=== PATIENT | male | born 1950 | race Caucasian/White ===

== ENCOUNTER → 2019-04-21 10:57 | Outpatient (BNVA) | payer MEDICARE, SELFPAY | PROVIDERS: Family Provider Family Medicine; PCP Family Medicine; Visit Provider Family Medicine | DX: E11.9 Type 2 diabetes mellitus without complications (principal); E03.9 Hypothyroidism, unspecified; I61.2 Nontraumatic intracerebral hemorrhage in hemisphere, unspecified | CPT/HCPCS: 36416; 83036; 84439; 84443 ==

== ENCOUNTER → 2019-06-16 14:35 | Outpatient (BNVA) | payer MEDICARE, SELFPAY | PROVIDERS: Family Provider Family Medicine; PCP Family Medicine; Visit Provider Specialist | DX: G81.11 Spastic hemiplegia affecting right dominant side (principal); R29.90 Unspecified symptoms and signs involving the nervous system | CPT/HCPCS: 99214 ==

== ENCOUNTER → 2019-08-21 13:11 | Outpatient (BNVA) | payer MEDICARE, SELFPAY | PROVIDERS: Family Provider Family Medicine; PCP Family Medicine; Visit Provider Specialist | DX: G81.11 Spastic hemiplegia affecting right dominant side (principal) | CPT/HCPCS: 64642; J0585 ==

== ENCOUNTER → 2019-10-15 11:43 | Outpatient (BNVA) | payer MEDICARE, SELFPAY | PROVIDERS: Family Provider Family Medicine; PCP Family Medicine; Visit Provider Family Medicine | DX: E11.9 Type 2 diabetes mellitus without complications (principal) | CPT/HCPCS: 83036 ==

== ENCOUNTER → 2019-11-13 12:55 | Outpatient (BNVA) | payer MEDICARE, SELFPAY | PROVIDERS: Family Provider Family Medicine; PCP Family Medicine; Visit Provider Specialist | DX: G81.11 Spastic hemiplegia affecting right dominant side (principal) | CPT/HCPCS: 64642; 99212 ==

== ENCOUNTER → 2020-04-14 09:53 | Outpatient (BNVA) | payer MEDICARE, SELFPAY | PROVIDERS: Family Provider Family Medicine; PCP Family Medicine; Visit Provider Family Medicine | DX: E11.9 Type 2 diabetes mellitus without complications (principal); E03.9 Hypothyroidism, unspecified | CPT/HCPCS: 36415; 83036; 84439; 84443 ==

== ENCOUNTER → 2020-05-12 14:11 | Outpatient (BNVA) | payer MEDICARE, SELFPAY | PROVIDERS: Family Provider Family Medicine; PCP Family Medicine; Visit Provider Specialist | DX: I69.151 Hemiplegia and hemiparesis following nontraumatic intracerebral hemorrhage affecting right dominant side (principal); I69.120 Aphasia following nontraumatic intracerebral hemorrhage; I10 Essential (primary) hypertension; M79.89 Other specified soft tissue disorders | CPT/HCPCS: 99213 ==

== ENCOUNTER 2020-05-13 14:38 | Outpatient (CLI) | payer MEDICARE, SELFPAY ==
--- NOTE | 2020-05-13 15:00 | USCV_ITS ---
BarneyShawn Age: 70 Gender: M : 1950 Exam Date: 05/13/2020 13:51 Ordering Phys: Taylor Hameed MD Technologist: Marcus Ryder Exam Location: [facility] [place] Indication: SOFT TISSUE DISORDER HISTORY: Other soft tissue disorder PROCEDURES: Venous duplex imaging was performed in only the right lower extremity. The following venous structures were evaluated: common femoral vein, profunda vein, proximal portion of the greater saphenous vein, superficial femoral vein, and the popliteal vein. In addition, the posterior tibial and peroneal trunk were evaluated. Serial compression, augmentation maneuvers, and spectral Doppler flow evaluation were performed. FINDINGS: Normal 2-D Doppler and augmentation and compressibility throughout the lower extremity venous structures. Additional imaging through the proximal calf veins also reveals no thrombus. Limited evaluation of the greater saphenous vein is patent with no thrombus. There is subcutaneous right lower extremity edema noted. CONCLUSIONS No DVT right lower extremity. There is subcutaneous right lower extremity edema noted. Dr. Yolande Paz DO (Electronically Signed) Final Date: 13 May 2020 16:13 S
== END 2020-05-13 14:39 | disposition home or self-care (01) ==
LOC: RAD 14:42
PROVIDERS: PCP Family Medicine; Visit Provider Specialist
DX: M79.89 Other specified soft tissue disorders (principal)
CPT/HCPCS: 93971

== ENCOUNTER 2020-07-09 18:51 | Inpatient (IN) | payer MEDICARE, SELFPAY ==
[2020-07-09] VITALS (11 sets, daily range): BP systolic 82–129; BP diastolic 48–90; PULSE 106–163; RESP 18–33; TEMP 36.9–37.5; O2SAT 78–97; BMI 21.2
--- NOTE | 2020-07-09 19:10 | ECG_ITS ---
[facility] Test Date: 2020-07-09 Pat Name: Shawn Corley Department: Room: [facility]04 Gender: Male [employer]: : 1950 Requested By: Ramon Pike Order Number: [id number] Boaz MD: Ml Lyman M.D. Measurements Intervals [place] Rate: 100 P: 38 CO: 181 QRS: 56 QRSD: 90 T: -14 QT: 321 QTc: 415 Interpretive Statements SINUS TACHYCARDIA LOW QRS VOLTAGE IN PRECORDIAL LEADS [QRS DEFLECTION < 1.0 mV IN CHEST LEADS] NONSPECIFIC T-WAVE ABNORMALITY Compared to ECG 09/17/2017 14:43:23 Low QRS voltage now present Sinus rhythm no longer present T-wave abnormality still present Electronically Signed On 07-10-2020 20:22:39 CDT by Ml Lyman M.D. [id number]
--- NOTE | 2020-07-09 19:48 | XRR_ITS ---
PROCEDURE INFORMATION: Exam: XR Chest Exam date and time: 07/09/2020 7:51 PM Age: 70 years old Clinical indication: Other: Weakness; Additional info: Weak TECHNIQUE: Imaging protocol: XR of the chest Views: 1 view. Total images: 1 COMPARISON: CR Chest 1 [place] [id number] 09/17/2017 2:45 PM FINDINGS: Lungs: No visible active interstitial or alveolar airspace disease. Pleural spaces: Unremarkable. No pleural effusion. No pneumothorax. Heart/Mediastinum: Cardiac structures and configuration with arteriosclerosis. Bones/joints: Unremarkable for age. XR/XR chest 1V portable [id number] IMPRESSION: Nonacute.
--- NOTE | 2020-07-09 19:54 | ED_ITS ---
HPI - Weakness General: Chief complaint: Weakness Stated complaint: weakness Time Seen by Provider: 07/09/20 19:40 Source: patient Mode of arrival: ambulatory Limitations: no limitations History of Present Illness: HPI Narrative: 70-year-old male has had a history of hemorrhagic stroke and subdural hemorrhage in the past. Patient has chronic right-sided weakness from that. states that over the last week though he has been having increased weakness. She states that he has not done much during his physical therapy visits and that over the last 2 days that she has not even been able to transferring from chair to bed. She states he has had vomiting and diarrhea over the last 2 days. He does appear ill here and appears severely dehydrated. His blood pressures are in the 70s. He has had no known fevers. Denies any cough. Denies any headache. Associated symptoms: Reports nausea and vomiting; Denies chest pain, dysuria or easy bruising Review of Systems Const: Reports: fatigue Eyes: Denies: blurry vision or eye discomfort ENMT: Denies: throat pain or dental pain Card: Denies: chest pain Resp: Denies: dyspnea GI: Reports: nausea, vomiting and diarrhea : Denies: dysuria Musc: Denies: neck pain or back pain Skin/Breast: Denies: rash Neuro: Reports: weakness in extremities Psych: Denies: depression Mina/Lymph: Denies: easy bruising All/Imm: Denies: urticaria PFSH ED PFSH: Medical History CVA (cerebrovascular accident due to intracerebral hemorrhage) Enrolled in chronic care management Hypertensive intracerebral hemorrhage Hypothyroid Nocturnal enuresis Nontraumatic thalamic hemorrhage Spastic hemiparesis of right dominant side Type 2 diabetes mellitus Surgical History H/O craniotomy Family History Other Diabetes Hypertension Stroke Denies family history of CAD (coronary artery disease) Cancer Social History Smoking and tobacco status: never smoked Alcohol intake: never History of recent travel: No Physical Exam Const: COMMON NORMALS: patient oriented x3 GENERAL APPEARANCE: lethargic and ill appearing ORIENTATION/CONSCIOUSNESS: Yes lethargic HENMT: COMMON NORMALS: normocephalic and atraumatic HEAD & SCALP: normocephalic and atraumatic Eye: COMMON NORMALS: Equal, round and reactive pupils present and EOMs intact bilaterally PUPIL: Yes Equal, round and reactive pupils present Neck/C-Spine: COMMON NORMALS: full ROM and supple Chest: COMMONS NORMALS: normal inspection of the chest and normal palpation of entire chest wall Resp: COMMON NORMALS: normal respiratory effort, No retractions, No use of accessory muscles and clear to auscultation bilaterally AUSCULTATION: clear to auscultation bilaterally Cardio: COMMON NORMALS: regular rate, regular rhythm and No murmurs present (Cardio) RATE: regular rate RHYTHM: regular rhythm GI: COMMON NORMALS: Normal to inspection, nondistended, normoactive bowel sounds present, Soft to palpation, non-tender and no masses PALPATION: Yes Soft to palpation Extremity: COMMON NORMALS: normal to inspection and full ROM Neuro: COMMON NORMALS: patient oriented x3 and no focal motor deficits SENSORIUM/ORIENTATION: Yes lethargic Psych: COMMON NORMALS: mental status grossly normal, Normal thought process present and cooperative THOUGHT PROCESS: Normal thought process present Skin: COMMON NORMALS: no rashes or lesions noted and no wounds GENERAL SKIN EXAM: no rashes or lesions noted Procedures Central Line Placement Right IJ: Time Out Performed: Yes Patient Placed on Monitor/Pulse Ox: Yes MD Prep: mask, gown and gloves Central Line Prep: Chlorhexidine scrub Local Anesthetic: lidocaine 1% Amount of anesthesia used (mL): 5 Ultrasound Used for Placement: Yes Central Line Lumen Inserted: triple Post Procedure: sutured in place, good blood return, all ports aspirated, flushed, capped and sterile dressing applied Post Procedure X-Ray: tip of catheter in good position and no pneumothorax seen Patient Tolerated Procedure: well Complications: none Course Vital Signs: Vital signs: Vital Signs Temperature 98.5 F 07/09/20 19:14 Pulse Rate 114 H 07/09/20 22:25 Respiratory Rate 23 H 07/09/20 22:25 Blood Pressure 87/48 07/09/20 22:25 Pulse Oximetry 90 07/09/20 22:25 MDM - Weakness MDM Narrative: Medical decision making narrative: Shawn presents with dehydrat ion along with septic shock. Patient started on antibiotics here. After fluids patient still hypotensive and had a central line placed and started on pressors. Spoke to hospitalist will admit to the ICU. Lab Data: Labs: Lab Results 07/09/20 07/09/20 07/09/20 Range/Units 20:16 20:16 20:16 WBC Cancelled Corrected WBC Cancelled RBC Cancelled Hgb Cancelled Hct Cancelled MCV Cancelled MCH Cancelled MCHC Cancelled RDW Cancelled Plt Count Cancelled MPV Cancelled Gran % Cancelled Neut % (Auto) Cancelled Lymph % (Auto) Cancelled Alpine % (Auto) Cancelled Eos % (Auto) Cancelled Baso % (Auto) Cancelled Neut # (Auto) Cancelled Lymph # (Auto) Cancelled Alpine # (Auto) Cancelled Eos # (Auto) Cancelled Baso # (Auto) Cancelled Absolute Gran (aut o) Cancelled Nucleated RBC % (a uto) Cancelled Total Counted (0-100) Atypical Lymphs % (0-5) % Absolute Neutrophi ls (1.4-6.5) 10^3/c mm Segmented Neutroph ils % Abs Segm Neuts (Ma n) (1.6-7.1) 10/cmm Band Neutrophils % Abs Band Neuts (Ma n) (0.0-1.2) 10^3/c mm Absolute Lymphocyt es (1.2-3.4) 10^3/c mm Lymphocytes (Manua l) % Monocytes (Manual) % Absolute Monocytes (0.1-0.6) 10^3/c mm Eosinophils (Manua l) % Absolute Eosinophi ls (0.0-0.7) 10^3/c mm Basophils (Manual) % Absolute Basophils (0.0-0.2) 10^3/c mm Metamyelocytes % Nucleated RBCs # Cancelled Toxic Granulation Toxic Vacuolation Dohle Bodies Platelet Estimate (Normal) Sodium Cancelled Potassium Cancelled Chloride Cancelled Carbon Dioxide Cancelled Anion Gap Cancelled BUN Cancelled Creatinine Cancelled GFR Calculation Cancelled Glucose Cancelled Calculated Osmolal ity Cancelled Lactic Acid Lactic Acid (Sepsi s) (0.5-2.2) mmol/L Calcium Cancelled Magnesium Cancelled Total Bilirubin Cancelled AST Cancelled ALT Cancelled Alkaline Phosphata se Cancelled Troponin T Baselin e Cancelled Total Protein Cancelled Albumin Cancelled Globulin Cancelled TSH Cancelled Urine Color (Yellow) Urine Appearance (CLEAR) Urine pH (5-7) Ur Specific Gravit y (1.005-1.030) Urine Protein (Negative) Urine Glucose (UA) (Normal) Urine Ketones (Negative) Urine Blood (Negative) Urine Nitrate (Negative) Urine Bilirubin (Negative) Urine Urobilinogen (Negative) mg/dL Ur Leukocyte Cassie ase (Negative) Urine RBC (0-2) /hpf Urine WBC (0-5) /hpf Ur Squamous Epith Cells (0-5) /hpf Ur Renal Epithelia l Cell /hpf Amorphous Sediment Urine Bacteria (NONE) /hpf 07/09/20 07/09/20 07/09/20 Range/Units 20:16 21:21 21:21 WBC 16.7 H Corrected WBC RBC 3.82 L Hgb 11.8 Hct 37.8 L MCV 99.0 H MCH 30.9 MCHC 31.2 RDW 14.4 Plt Count 110 L MPV 11.1 H Gran % Neut % (Auto) Lymph % (Auto) Not Reportable Alpine % (Auto) Not Reportable Eos % (Auto) Baso % (Auto) Neut # (Auto) Lymph # (Auto) Not Reportable Alpine # (Auto) Not Reportable Eos # (Auto) Baso # (Auto) Absolute Gran (aut o) Nucleated RBC % (a uto) Total Counted 100 (0-100) Atypical Lymphs % 1.0 (0-5) % Absolute Neutrophi ls 13.5 H (1.4-6.5) 10^3/c mm Segmented Neutroph ils 50 % Abs Segm Neuts (Ma n) 8.4 H (1.6-7.1) 10/cmm Band Neutrophils 31.0 % Abs Band Neuts (Ma n) 5.2 H (0.0-1.2) 10^3/c mm Absolute Lymphocyt es 0.5 L (1.2-3.4) 10^3/c mm Lymphocytes (Manua l) 2 % Monocytes (Manual) 3.0 % Absolute Monocytes 0.5 (0.1-0.6) 10^3/c mm Eosinophils (Manua l) 0 % Absolute Eosinophi ls 0.0 (0.0-0.7) 10^3/c mm Basophils (Manual) 0.0 % Absolute Basophils 0.0 (0.0-0.2) 10^3/c mm Metamyelocytes 13.0 % Nucleated RBCs # Toxic Granulation 2+ H Toxic Vacuolation 2+ H Dohle Bodies 1+ H Platelet Estimate Decreased (Normal) Sodium Potassium Chloride Carbon Dioxide Anion Gap BUN Creatinine GFR Calculation Glucose Calculated Osmolal ity Lactic Acid Cancelled Lactic Acid (Sepsi s) 4.8 H* (0.5-2.2) mmol/L Calcium Magnesium Total Bilirubin AST ALT Alkaline Phosphata se Troponin T Baselin e Total Protein Albumin Globulin TSH Urine Color (Yellow) Urine Appearance (CLEAR) Urine pH (5-7) Ur Specific Gravit y (1.005-1.030) Urine Protein (Negative) Urine Glucose (UA) (Normal) Urine Ketones (Negative) Urine Blood (Negative) Urine Nitrate (Negative) Urine Bilirubin (Negative) Urine Urobilinogen (Negative) mg/dL Ur Leukocyte Cassie ase (Negative) Urine RBC (0-2) /hpf Urine WBC (0-5) /hpf Ur Squamous Epith Cells (0-5) /hpf Ur Renal Epithelia l Cell /hpf Amorphous Sediment Urine Bacteria (NONE) /hpf 07/09/20 07/09/20 07/09/20 Range/Units 21:21 21:21 22:07 WBC Corrected WBC RBC Hgb Hct MCV MCH MCHC RDW Plt Count MPV Gran % Neut % (Auto) Lymph % (Auto) Alpine % (Auto) Eos % (Auto) Baso % (Auto) Neut # (Auto) Lymph # (Auto) Alpine # (Auto) Eos # (Auto) Baso # (Auto) Absolute Gran (aut o) Nucleated RBC % (a uto) Total Counted (0-100) Atypical Lymphs % (0-5) % Absolute Neutrophi ls (1.4-6.5) 10^3/c mm Segmented Neutroph ils % Abs Segm Neuts (Ma n) (1.6-7.1) 10/cmm Band Neutrophils % Abs Band Neuts (Ma n) (0.0-1.2) 10^3/c mm Absolute Lymphocyt es (1.2-3.4) 10^3/c mm Lymphocytes (Manua l) % Monocytes (Manual) % Absolute Monocytes (0.1-0.6) 10^3/c mm Eosinophils (Manua l) % Absolute Eosinophi ls (0.0-0.7) 10^3/c mm Basophils (Manual) % Absolute Basophils (0.0-0.2) 10^3/c mm Metamyelocytes % Nucleated RBCs # Toxic Granulation Toxic Vacuolation Dohle Bodies Platelet Estimate (Normal) Sodium 136 Potassium 4.1 Chloride 100 Carbon Dioxide 18 L Anion Gap 22.1 H BUN 57 H Creatinine 2.6 H GFR Calculation 24.6 L Glucose 150 H Calculated Osmolal ity 301 H Lactic Acid Lactic Acid (Sepsi s) (0.5-2.2) mmol/L Calcium 8.3 L Magnesium 1.6 L Total Bilirubin 0.4 AST 43 H ALT 22 Alkaline Phosphata se 42 Troponin T Baselin e 191 H* Total Protein 5.4 L Albumin 3.4 L Globulin 2.0 TSH 1.52 Urine Color Yellow (Yellow) Urine Appearance Turbid (CLEAR) Urine pH 5 (5-7) Ur Specific Gravit y 1.015 (1.005-1.030) Urine Protein Neg (Negative) Urine Glucose (UA) Norm (Normal) Urine Ketones Negative (Negative) Urine Blood 3+ H (Negative) Urine Nitrate Negative (Negative) Urine Bilirubin Neg (Negative) Urine Urobilinogen Norm (Negative) mg/dL Ur Leukocyte Cassie ase 1+ H (Negative) Urine RBC 0-4 H (0-2) /hpf Urine WBC 55-80 H (0-5) /hpf Ur Squamous Epith Cells 10-15 H (0-5) /hpf Ur Renal Epithelia l Cell 5-10 /hpf Amorphous Sediment Not Reportable Urine Bacteria 4+ H (NONE) /hpf Imaging Data^: CXR: Attestation: I personally reviewed and interpreted this imaging study as follows: My impression: no acute abnormality EKG Data^: EKG 1: Attestation: I personally reviewed and interpreted this EKG as follows: EKG interpretation date: 07/09/20 EKG interpretation time: 20:28 Interpretation: sinus tach hr [address] or t wave abnormalities qrs 90 qtc 378 Critical Care Time Critical Care Time: Critical Care Time: Yes Total Critical Care Time: 35 Attestation: This case had a high probability of a clinically significant, sudden, or life threatening deterioration of this patient's condition which required my full and direct attention, intervention and personal management. Discharge Plan Discharge Patient Disposition: Admitted As Inpatient Admit Provider: Joshua Villafana Clinical Impression: Septic shock, Dehydration, Vomiting Condition: Stable Coding Level of Care Code ED [employer] Professional for Chg Fwd Exam Comprehensive
--- NOTE | 2020-07-09 19:59 | CTR_ITS ---
PROCEDURE INFORMATION: Exam: CT Head Without Contrast Exam date and time: 07/09/2020 8:02 PM Age: 70 years old Clinical indication: Prior surgery; Patient HX: Generalized weakness, hypotensive TECHNIQUE: Imaging protocol: Computed tomography of the head without contrast. Total images: 199 Radiation optimization: All CT scans at this facility use at least one of these dose optimization techniques: automated exposure control; mA and/or kV adjustment per patient size (includes targeted exams where dose is matched to clinical indication); or iterative reconstruction. COMPARISON: CT head wo con* [id number] 09/17/2017 1:56 PM RADIATION DOSE METRICS: Total DLP (mGy-cm): 1904.33 FINDINGS: Brain: No evidence of active or acute intracranial pathologic process, hemorrhage, or trauma. Advanced small vessel ischemic disease with senile periventricular leukomalacia. Extensive white matter demyelination, left cerebral hemisphere more advanced than right. Old lacunar infarctions left basal ganglia. Tiny lacunar infarctions right thalamus and lentiform nucleus. No mass effect. No midline shift. Advanced cerebral and cerebellar atrophy with ventricular dilatation greater than that anticipated for patient's chronological age. Gliosis and encephalomalacia at sites of previous intracranial hemorrhages. Cerebral ventricles: Ventriculomegaly greater than that anticipated for the degree of cerebral and cerebral atrophy. Thinning of the corpus callosum. Consideration might be given to normal pressure hydrocephalus. Bones/joints: Right frontal parietal craniotomy defect. Left posterior parietal trephination craniotomy defects. Paranasal sinuses: Visualized sinuses are unremarkable. No fluid levels. Mastoid air cells: Visualized mastoid air cells are well aerated. Soft tissues: Unremarkable. Other findings: Motion artifact. CT/CT head wo con* [id number] IMPRESSION: 1. No evidence of active or acute intracranial pathologic process, hemorrhage, or trauma. 2. Findings raising suspicion for normal pressure hydrocephalus. 3. Numerous chronic findings as detailed in text above. Radiation Dose CTDIVOL = (mGy): DLP = 1904.33 (mGy-cm)
[2020-07-09] MEDS: sodium chloride 0.9% 1,000 ML 999 ML IV ×3 (20:27→23:14)
[2020-07-09] MEDS: ondansetron 2 mg/ML SDV 2 mL 4 MG IVP (20:27)
--- NOTE | 2020-07-09 20:31 | PC.NURSE ---
EKG taken and given to provider
--- NOTE | 2020-07-09 21:10 | ECG_ITS ---
[facility] Test Date: 2020-07-09 Pat Name: Shawn Corley Department: Room: [facility]04 Gender: Male [employer]: : 1950 Requested By: Ramon Pike Order Number: [id number] Boaz MD: Ml Lyman M.D. Measurements Intervals [place] Rate: 103 P: 23 MI: 186 QRS: 43 QRSD: 78 T: 60 QT: 297 QTc: 389 Interpretive Statements SINUS TACHYCARDIA NONSPECIFIC T-WAVE ABNORMALITY ABNORMAL RHYTHM ECG Compared to ECG 09/17/2017 14:43:23 Sinus rhythm no longer present T-wave abnormality still present Electronically Signed On 07-10-2020 20:28:17 CDT by Ml Lyman M.D. [id number]
[2020-07-09 21:25] LABS: Hematocrit 37.8 % (42.0-52.0); Hemoglobin 11.8 g/dL (11.7-16.6); Mean Corpuscular HGB Conc 31.2 g/dL (30.0-36.0); Mean Corpuscular Hemoglobin 30.9 pg (28.0-34.0); Mean Platelet Volume 11.1 fL (7.4-10.4); Platelet Count 110 10^3/cmm (130-400); Red Blood Count 3.82 10^6/uL (4.1-5.3); Red Cell Distribution Width 14.4 % (12.1-15.1); White Blood Count 16.7 10^3/uL (4.0-10.0)
[2020-07-09 21:47] LABS: Slide Review Slide Review Perform
[2020-07-09 21:48] LABS: Absolute Neutrophil 13.5 10^3/cmm (1.4-6.5); Absolute Segmented Neutrophil 8.4 10/cmm (1.6-7.1); Band Neutrophils Absolute 5.2 10^3/cmm (0.0-1.2); Dohle Bodies 1+; Eosinophils 0 %; Lymphocytes 2 %; Lymphocytes Absolute 0.5 10^3/cmm (1.2-3.4); Monocytes Absolute 0.5 10^3/cmm (0.1-0.6); Platelet Estimate Decreased (Normal); Segmented Neutrophils 50 %; Total Cells Counted 100 (0-100); Toxic Granulation 2+; Toxic Vacuolation 2+
[2020-07-09] MEDS: piperacillin-tazobactam 3.375 GM in sodium chloride 0.9% (plus) 50 ML IV (21:56)
[2020-07-09 21:57] LABS: Alanine Aminotransferase 22 U/L (0-41); Albumin Level 3.4 g/dL (3.5-5.2); Alkaline Phosphatase 42 IU/L (40-130); Anion Gap 22.1 (5-19); Aspartate Amino Transferase 43 U/L (0-40); Blood Urea Nitrogen 57 mg/dL (8-23); Calcium 8.3 mg/dL (8.5-10.5); Carbon Dioxide 18 mmol/L (22-29); Chloride 100 mmol/L (98-107); Glomerular Filtration Rate 24.6 mL/min (90-130); Glucose 150 mg/dL (65-115); Magnesium 1.6 mg/dL (1.7-2.3); Osmolality Calculated 301 mOsm/kg (285-295); Potassium 4.1 mmol/L (3.5-5.1); Sodium 136 mmol/L (136-145); Thyroid Stimulating Hormone 1.52 uIU/mL (0.27-4.20); Total Bilirubin 0.4 mg/dL (0.15-1.2); Total Protein 5.4 g/dL (6.6-8.7)
[2020-07-09 21:58] LABS: Lactic Acid level (Lactate) 4.8 mmol/L (0.5-2.2); Troponin(5th) Baseline 191 ng/L (0-15)
[2020-07-09] MEDS: vancomycin 1,000 MG in sodium chloride 0.9% 250 ML 250 MG IV (22:21)
[2020-07-09 22:26] LABS: Bilirubin Urine Neg (Negative); Blood Urine 3+ (Negative); Glucose Urine UA Norm (Normal); Ketones Urine Negative (Negative); Nitrate Urine Negative (Negative); Protein Urine Neg (Negative); Specific Gravity, Urine 1.015 (1.005-1.030); Urine Appearance Turbid (CLEAR); Urine Color Yellow (Yellow); Urobilinogen Urine Norm (Negative); pH Urine 5 (5-7)
[2020-07-09 22:27] LABS: Add Urine Microscopic? YES; Bacteria Urine 4+ /hpf; Leukocyte Esterase Urine 1+ (Negative); RBC Urine 0-4 /hpf (0-2); WBC Urine 55-80 /hpf (0-5)
[2020-07-09] MEDS: sodium chloride 0.9% 1,000 ML 150 ML IV (22:34)
--- NOTE | 2020-07-09 22:51 | P.HP_ITS ---
Providers/Chief Complaint Admitting Physician: Joshua Villafana MD Primary Care Provider: Oscar Farah DO Chief Complaint: weakness History of Present Illness Shawn Corley is a 70 year old male who carries history of hemorrhagic stroke, subdural hematoma September 2017, spastic right hemiparesis, history of hypertensive thalamic hemorrhage 2015, residual aphasia, does get Botox injection for spastic hemiparesis by Dr. Hameed presented today with chief complaint of nausea vomiting generalized weakness and dehydration. Patient cannot provide any history, I called his , is stating that yesterday he had 1 episode of emesis and then had a large bowel movement which was loose, no recent antibiotic usage, she did not notice any fever, she is denying previous history of seizures, since yesterday Mr. Castrejon has not been able to eat or drink much, he only had one episode of diarrhea and emesis. He did not complain of abdominal pain chest pain or shortness of breath. stated that he uses quad cane to go to the bathroom and does have home health services/PT. Because of these changes she decided to bring him to the hospital Diagnosis in the ER revealed septic shock he was given 3 L of fluid without improvement in blood pressure, central line was placed by Dr. Andrews, initial x- ray did not show pulmonary edema however after 3 L it is showing pulmonary edema with right lower lobe consolidation he has been given vancomycin and Zosyn in the ER, CBC shows leukocytosis, low-grade temperature 99.9, hemoglobin stable, mild thrombocytopenia, blast cell noted on CBC, PHIL, normal potassium lactic acid 4.8, hypomagnesemia, negative delta troponin EKG showing sinus tachycardia without ischemic or ST elevation Normal TSH Abnormal UA with significant pyuria without hematuria CT abdomen pelvis is pending Head CT shows chronic changes, findings consistent with NPH When I evaluated the patient in ICU he was showing signs of hypoperfusion with skin mottling, he was able to follow commands, short attention span, mottled appearance of lower extremities however dorsalis pedis posterior tibial Doppler findings 2+ bilaterally, temperature 99.9, blood glucose 167 mg/dL, He was started on phenylephrine vasopressor, 1 L bolus was given, muscle twitching/fasciculation was noted, for possibility of breakthrough seizure I requested prolactin, procalcitonin and given Ativan 2 mg IV push, Cardizem IV push was given for sinus tachycardia heart rate was 150s, it brought it down to 120s. was updated about above interventions, worsening status. Her questions we re answered to her satisfaction Review of Systems General: Reports: ROS unobtainable due to medical condition (Septic shock, encephalopathy) Medications/Allergies Home Medications Medication Instructions Recorded Confirmed Last Taken Type cholecalciferol (vitamin D3) 25 1,000 unit PO DAILY@0830 cap 04/21/19 07/09/20 07/08/20 History mcg (1,000 unit) capsule cinnamon bark 500 mg capsule 500 mg PO DAILY@0830 cap 04/21/19 07/09/20 07/08/20 History flaxseed oil 1,000 mg capsule 1,000 mg PO DAILY@0830 cap 04/21/19 07/09/20 07/08/20 History sennosides 8.6 mg capsule 8.6 mg PO DAILY PRN cap 04/21/19 07/09/20 Unknown History blood sugar diagnostic #200 each 09/09/19 07/09/20 Unknown Rx Namenda 10 mg PO DAILY@0830 07/09/20 07/09/20 07/08/20 History insulin detemir U-100 10 unit SUBCUT DAILY@0830 07/09/20 07/09/20 07/09/20 History levothyroxine 100 mcg PO DAILY@0830 07/09/20 07/09/20 07/09/20 History lisinopril 10 mg PO DAILY@0830 07/09/20 07/09/20 07/08/20 History metformin 500 mg PO BID@0830,2030 07/09/20 07/09/20 07/08/20 History Allergies Allergy/AdvReac Type Severity Reaction Status Date / Time iodine Allergy Unknown nausea- Verified 05/12/20 14:49 vomiting PFSH Acute PFSH: Medical History CVA (cerebrovascular accident due to intracerebral hemorrhage) Enrolled in chronic care management Hypertensive intracerebral hemorrhage Hypothyroid Nocturnal enuresis Nontraumatic thalamic hemorrhage Spastic hemiparesis of right dominant side Type 2 diabetes mellitus Surgical History H/O craniotomy Family History Other Diabetes Hypertension Stroke Denies family history of CAD (coronary artery disease) Cancer Social History Smoking and tobacco status: never smoked Alcohol intake: never History of recent travel: No Vitals/I&O/Wt Last Vital Signs Temp 98.5 F 07/09/20 19:14 Pulse 114 H 07/09/20 22:25 Resp 23 H 07/09/20 22:25 BP 87/48 07/09/20 22:25 Pulse Ox 90 07/09/20 22:25 07/09/20 07/09/20 07/09/20 06:59 14:59 22:59 Intake Total 1083.3 / 1083.3 Balance 1083.3 / 1083.3 Weight last 48 hrs Weight 63.503 kg Physical Exam Narrative: EXAM NARRATIVE: male, who appears more than stated age, very dehydrated Currently laying supine with resting tremors, spastic paresis of all extremities Skin mottling of lower extremities which is extending up to thighs, Dorsalis pedis posterior tibial artery 2+ Doppler done in the ICU Patient had 1 loose stool in his diaper S1, S2 sinus tachycardia hard to appreciate murmur Clinically looks extremely dehydrated Soft abdomen bowel sound present Bilateral breath sounds with rhonchi and crackles Pupils are equal and symmetrical however sluggish to response to light Patient does follow commands, protrude his tongue and open his eyes on command, for most of my questions he answered No Muscle fasciculation noted of lower extremities Dry mucosal membranes Data : 07/09/20 21:21 07/09/20 21:21 Micro: Microbiology 07/09/20 20:00 Blood Culture - Preliminary Blood SPECIMEN COLLECTED 07/09/20 20:16 Blood Culture - Preliminary Blood SPECIMEN COLLECTED A&P Assessment and plan (1) Septic shock: Status: Acute (2) Dehydration: Status: Acute (3) PHIL (acute kidney injury): Status: Acute (4) UTI (urinary tract infection): Status: Acute (5) Community acquired pneumonia: Status: Acute (6) Dehydration: Status: Acute (7) Vomiting: Status: Acute (8) Acute respiratory failure with hypoxia: Status: Acute Additional A&P Information Septic shock with encephalopathy Patient has right lower lobe infiltrate, abnormal UA noted with pyuria, Currently requiring phenylephrine, in total he required 4 L of normal saline bolus current chest x-ray showing pulmonary edema, skin showing mottling, poor capillary refill Vancomycin and Zosyn given in the ER, secondary to PHIL I would use vancomycin, cefepime and aztreonam Requested urine culture, blood culture, urine antigen He is afebrile however sepsis criteria met with tachypnea, tachycardia, leukocytosis and lactic acidemia High risk for mortality and morbidity considering encephalopathy, currently requiring 15 L oxygen mask, high risk for intubation, due to spastic paresis of extremities it is very difficult to check meningeal signs, considering the fact I do have source of infection I would hold off on doing lumbar puncture for now Acute hypoxic respiratory failure Etiology right lower lobe pneumonia and pulmonary edema after getting full liter bolus for septic shock Hold off on fluid Once blood pressure is better we will give him 20 IV Lasix Currently on 15 L oxygen mask, high risk for intubation Continue antibiotics We will follow up with urine antigen and sputum culture UTI Remarkable pyuria We will place Landon catheter and request CT abdomen pelvis to rule out pyelonephritis, continue cefepime and aztreonam Severe dehydration Currently fluids on hold secondary to pulmonary edema received 4 L bolus PHIL -Due to septic shock Rule out pyelonephritis, CT abdomen pelvis is pending Place Landon catheter monitor urine output Resting tremors and muscle fasciculation Concern for breakthrough seizure for which 2 mg of Ativan was pushed in the ICU Will request prolactin CT head does show NPH findings however no acute pathological findings, he does have history of hemorrhagic stroke, is denying previous history of breakthrough seizures Sinus tachycardia EKG consistent with sinus tachycardia heart rate fluctuated between 130s to 150s I did give him low-dose of Cardizem when his heart rate was around 150, I was reluctant to use more fluids as there is primary edema on chest x-ray, use phenylephrine instead of levophed Check D-dimer to rule out PE Goals of care discussed with his : He is full code DVT prophylaxis Heparin Clear liquid diet Landon catheter placement,: 07/10/2020 Central line placement: 07/09/[address] Andrews Attestations Medical Necessity Statement*: Anticipating stay in the hospital course more than 2 midnights for septic shock with encephalopathy community-acquired pneumonia, UTI, high risk for mortality morbidity Time Spent in Patient Care: (>than 50% of time spent in counselling and/or direct pt care on unit) . 50mins, involving calling his , managing patient at the bedside, revisited patient in ICU Coding Level of Care Code Acute Business Analyst Consultant for Chg Fwd Diagnoses Septic shock A41.9; R65.21 Dehydration E86.0 PHIL (acute kidney injury) N17.9 UTI (urinary tract infection) N39.0 Community acquired pneumonia J18.9 Dehydration E86.0 Vomiting R11.10 Acute respiratory failure with hypoxia J96.01
--- NOTE | 2020-07-09 23:31 | XRR_ITS ---
PROCEDURE INFORMATION: Exam: XR Chest Exam date and time: 07/09/2020 11:31 PM Age: 70 years old Clinical indication: Other vascular access device placement or adjustment; Central line, non-tunnelled; Patient HX: Check for central line placement TECHNIQUE: Imaging protocol: XR of the chest Views: 1 view. COMPARISON: CR XR chest 1V portable [id number] 07/09/2020 8:35 PM FINDINGS: Tubes, catheters and devices: A right internal jugular vein central venous line is placed with its tip at the level of the superior cavoatrial junction. Lungs: There is indistinctness of the pulmonary vasculature. There are increased interstitial opacities present within the hemithoraces bilaterally and mild peribronchial cuffing present. Some linear opacities are seen in the lower hemithoraces bilaterally. Pleural spaces: Unremarkable. No pleural effusion. No pneumothorax. Heart/Mediastinum: Unremarkable. No cardiomegaly. Bones/joints: There is evidence of a healed fracture of the proximal right humeral diaphysis. XR/XR chest 1V portable [id number] IMPRESSION: 1. Right internal jugular vein central venous line placed with tip at the level of the superior cavoatrial junction. 2. Indistinctness of the pulmonary vasculature, peribronchial cuffing, increased interstitial opacities and increased linear opacities in the lower hemithoraces, findings suggesting pulmonary edema. Superimposed interstitial pneumonia cannot be entirely excluded.
[2020-07-10] VITALS (202 sets, daily range): BP systolic 40–135; BP diastolic 36–105; PULSE 89–150; RESP 0–40; TEMP 36.4–37.3; O2SAT 83–100
[2020-07-10] MEDS: sodium chloride 0.9% 1,000 ML 999 ML IV (00:15)
[2020-07-10] MEDS: LORazepam 2 mg/mL INJ 1 mL IVP (00:22)
[2020-07-10] MEDS: sodium chloride 0.9% 1,000 ML 150 ML IV (00:31)
[2020-07-10 00:47] LABS: Troponin 5 2HR 171.2 ng/L (0-15); Troponin 5 2HR Delta -19.8 ABS# (0-10)
[2020-07-10 00:52] LABS: Arterial Blood Gas Hematocrit 37.5 % (42-52); Base Excess ABG -10.9 mmol/L (-2.0-2.0); Blood Gas Allen Test Pos; Blood Gas Operator Identificat HARKR; Blood Gas Sample Site Radial, left; Blood Gas Sample Type Arterial; HCO3 ABG 14.2 mmol/L (22-26); Oxygen Device NRB
--- NOTE | 2020-07-10 01:03 | PC.PHAR ---
Vancomycin is dosed at 500mg IVPB manhgn35 hours to produce a predicted trough level of 13.73 (population based pharmacokinetic analysis). A trough level has been ordered from the lab to confirm and adjust if needed.
--- NOTE | 2020-07-10 01:10 | ECG_ITS ---
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 Measurements Intervals [place] Rate: 148 P: PA: QRS: 41 QRSD: 94 T: 33 QT: 272 QTc: 427 Interpretive Statements ATRIAL FIBRILLATION WITH RAPID VENTRICULAR RESPONSE WITH ABERRANT CONDUCTION OR VENTRICULAR PREMATURE COMPLEXES LOW QRS VOLTAGE IN PRECORDIAL LEADS [QRS DEFLECTION < 1.0 mV IN CHEST LEADS] Possible ANTEROSEPTAL MYOCARDIAL INFARCTION [40+ ms Q WAVE IN V1-V4], PROBABLY OLD.MODERATE T-WAVE ABNORMALITY, CONSIDER INFERIOR ISCHEMIA [-0.1+ mV T WAVE IN II/aVF] INTERPRETATION BASED ON A DEFAULT AGE OF 40 YEARS Compared to ECG 07/09/2020 21:45:30 Aberrant conduction of supraventricular beat(s) now present Ventricular premature complex(es) now present.Low QRS voltage now present.Myocardial infarct finding now present.Possible ischemia now present.Sinus tachycardia no longer present T-wave abnormality still present. Heavy baseline artifact, need to repeat the study Electronically Signed On 07-10-2020 20:33:11 CDT by Ml Lyman M.D. [id number]
[2020-07-10] MEDS: aztreonam 2,000 MG in sodium chloride 0.9% (plus) 100 ML 200 MG IV (01:23)
[2020-07-10] MEDS: heparin 5,000 unit/mL INJ 1 mL 5000 UNIT SUBCUT ×3 (01:23→16:42)
[2020-07-10] MEDS: magnesium sulfate premix 2 GM/50 ML PIGGYBACK IV (01:23)
[2020-07-10] MEDS: cefepime 2,000 MG in sodium chloride 0.9% (plus) 50 ML 100 MG IV (01:24)
--- NOTE | 2020-07-10 01:46 | CTR_ITS ---
PROCEDURE INFORMATION: Exam: CT Abdomen And Pelvis Without Contrast Exam date and time: 07/10/2020 1:50 AM Age: 70 years old Clinical indication: Other: Diarrhea and pyuria; Patient HX: Diarrhea with pyuria; Additional info: Diarrhea and vomiting with pyuria TECHNIQUE: Imaging protocol: Computed tomography of the abdomen and pelvis without contrast. Radiation optimization: All CT scans at this facility use at least one of these dose optimization techniques: automated exposure control; mA and/or kV adjustment per patient size (includes targeted exams where dose is matched to clinical indication); or iterative reconstruction. COMPARISON: No relevant prior studies available. RADIATION DOSE METRICS: Total DLP (mGy-cm): 1153.24 FINDINGS: Lungs: Patchy and strandy opacities and consolidation is seen within the lower lobes bilaterally and within the lingula, findings compatible with a bilateral basilar atelectasis and or pneumonia. Pleural spaces: There are small bilateral pleural effusions. Liver: Normal. No mass. Gallbladder and bile ducts: Normal. No calcified stones. No ductal dilation. Pancreas: Normal. No ductal dilation. Spleen: Normal. No splenomegaly. Adrenal glands: Normal. No mass. Kidneys and ureters: Strandy opacities are seen in the perinephric fascia bilaterally compatible with chronic scarring. Inflammatory changes cannot be entirely excluded. There is a nonobstructing 4.9 mm calculus seen in the lower pole of the left kidney. There is hydronephrosis and hydroureter seen left. There is a 2.3 mm calculus seen within the dependent portion of the bladder possibly representing a recently passed left ureteral calculus. Stomach and bowel: Unremarkable. No obstruction. No mucosal thickening. Appendix: No evidence of appendicitis. Intraperitoneal space: Unremarkable. No free air. No significant fluid collection. Retroperitoneal space: There is thickening of Gerota's fascia the lateral conal fascia left. Vasculature: Unremarkable. No abdominal aortic aneurysm. Lymph nodes: Unremarkable. No enlarged lymph nodes. Urinary bladder: Landon catheter is present. There is some bladder wall thickening seen although the bladder is nondistended. Intraluminal gas densities are present within the bladder likely secondary to recent instrumentation. There is subtle hyperattenuation seen within the bladder lumen on the left as well possibly representing recently passed calculi. Reproductive: Unremarkable as visualized. Bones/joints: Unremarkable. No acute fracture. Soft tissues: There is a small left inguinal hernia containing fat. CT/CT abdomen pelvis wo con [id number] IMPRESSION: 1. There are strandy opacity seen in the perinephric fascia bilaterally and some thickening of the lateral conal fascia and erosive fascia left, findings that could represent chronic scarring. However, inflammatory changes and pyelonephritis cannot be entirely excluded. 2. There is a 4.9 mm nonobstructing left renal calculus present. There is hydronephrosis and hydroureter seen on left without evidence of obstructing ureteral calculi. However, there is a calculus seen in the dependent portion of the bladder that could represent a recently passed left ureteral calculus. 3. A Landon catheter is present. There is bladder wall thickening seen although the bladder is nondistended. Some gas densities are seen intraluminally within the bladder possibly secondary to recent catheterization. A tiny calcifications seen within the bladder lumen as well on the left that could represent a recently passed calculus as well. 4. Probable bilateral basilar atelectasis and/or pneumonia. There are small bilateral pleural effusions present as well. Radiation Dose CTDIVOL = (mGy): DLP = 1153.24 (mGy-cm)
[2020-07-10] MEDS: FUROsemide 10 mg/mL SDV 2mL 20 MG IVP ×2 (02:12→07:03)
[2020-07-10] MEDS: sodium bicarbonate 8.4% 1 mEq/mL 50mL Syr 50 MEQ IVP (02:12)
[2020-07-10 02:17] LABS: Troponin 5 6HR Delta 0.1 ng/L (0-12)
[2020-07-10 02:21] LABS: Troponin 5 6HR 191.1 ng/L (0-15)
[2020-07-10 02:23] LABS: Procalcitonin > 100.00 ng/mL (0-0.5)
[2020-07-10] MEDS: phenylephrine inj 25 MG in sodium chloride 0.9% 250 ML 24.2 MG IV (03:00)
[2020-07-10] MEDS: vancomycin 500 MG in sodium chloride 0.9% (plus) 100 ML 100 MG IV (03:01)
--- NOTE | 2020-07-10 03:20 | PC.NURSE ---
ICU Arrival; Patient arrived to ICU around 2320 via gurney from ER and accompanied by ER staff X1. Patient transferred to ICU bed with nursing staff x5 without incident. Patient arrived on RM Air with a SPO2 at 73%. RN placed oxymask on patient at 15L. SPO2 continued to fluctuate between 80-84%. NRB placed on pt with little to no change noted. Bipap orders given and patient increased to 100%. A&O2. MD at bedside. Patient's RLE purple and red in color, and cold to touch. Doppler revealed faint pulses in extremity. Mottling noted to bilateral knees/thighs that appeared to spread with time passing. MD observed changes as well. Landon placed with sterile technique. 500mL immediate return with 10mL in balloon. Patient HR increased to 120's-150's. EKG obtained and results of Afib-RVR. New orders for Cardizem IVP as well as Ativan IVP. Patient taken to CT for abdominal imaging without incident. Bed low and locked. Call light in reach. Room visible from nurses station.
[2020-07-10 05:17] LABS: Basophils # 0.1 10^3/uL (0.0-0.1); Basophils % 0.6 %; Hematocrit 33.7 % (42.0-52.0); Lymphocytes # 0.3 10^3/uL (0.8-4.8); Lymphocytes % 1.4 %; Mean Corpuscular HGB Conc 32.6 g/dL (30.0-36.0); Mean Corpuscular Hemoglobin 30.1 pg (28.0-34.0); Mean Corpuscular Volume 92.1 fL (80-94); Mean Platelet Volume 11.8 fL (7.4-10.4); Monocytes # 0.6 10^3/uL (0.2-0.9); Monocytes % 3.2 %; Neutrophils # 16.13 10^3/uL (1.8-7.7); Nucleated Red Blood Cells % 0 %; Platelet Count 118 10^3/cmm (130-400); Red Blood Count 3.66 10^6/uL (4.1-5.3); Red Cell Distribution Width 14.4 % (12.1-15.1); White Blood Count 19.3 10^3/uL (4.0-10.0)
[2020-07-10 05:42] LABS: Glucose Point of Care 167 mg/dL (70-110)
[2020-07-10 05:44] LABS: Lactate (Lactic Acid level) 3.3 mmol/L (0.5-2.2)
[2020-07-10 05:47] LABS: Anion Gap 15.4 (5-19); Blood Urea Nitrogen 59 mg/dL (8-23); Calcium 7.7 mg/dL (8.5-10.5); Carbon Dioxide 18 mmol/L (22-29); Chloride 110 mmol/L (98-107); Glomerular Filtration Rate 25.7 mL/min (90-130); Glucose 129 mg/dL (65-115); Osmolality Calculated 308 mOsm/kg (285-295); Potassium 3.4 mmol/L (3.5-5.1); Sodium 140 mmol/L (136-145)
[2020-07-10 06:19] LABS: Slide Review Slide Review Perform
[2020-07-10 06:20] LABS: Neutrophils % 94.8 %
--- NOTE | 2020-07-10 06:40 | PC.NURSE ---
Patient MAP's continues to trend downward. Mo gtt titration based on v/s. MD contacted based on MAP result and max gtt, and came to bedside. New orders to give Lasix IVP ONCE, restart Levophed gtt, and continue with Mo gtt. RN contacted pt's and gave update in status. MD gave permission for to come to bedside before visiting hours, and RN relayed this information. helpdesk analyst, and security notified of this permission given as well.
[2020-07-10] MEDS: phenylephrine inj 25 MG in sodium chloride 0.9% 250 ML 121.2 MG IV (07:02)
[2020-07-10] MEDS: ipratropium-albuterol 3 mL Neb INHALATION ×2 (07:55→20:10)
--- NOTE | 2020-07-10 08:03 | USCV_ITS ---
BarneyShawn rios Age: 70 Gender: M : 1950 Exam Date: 07/10/2020 10:13 Ordering Phys: Alexis Small MD Technologist: Kenzie Cuadra Exam Location: [facility] – [place] Indication: elevated troponin hypotensive BP: 104 / 80 HR: 99 Rhythm: Sinus Technical Quality: Very technically difficult study MEASUREMENTS (Male / Female) Normal Values 2D ECHO LV Diastolic Diameter PLAX 2.7 cm 4.2 - 5.9 / 3.9 - 5.3 cm LV Systolic Diameter PLAX 2.5 cm IVS Diastolic Thickness 1.8 cm 0.6 - 1.0 / 0.6 - 0.9 cm IVS Systolic Thickness 1.8 cm LVPW Diastolic Thickness 1.8 cm 0.6 - 1.0 / 0.6 - 0.9 cm LVPW Systolic Thickness 1.9 cm LVOT Diameter 2.1 cm LV Ejection Fraction 2D Teich 30.3 % LV Ejection Fraction MOD 2C 36.9 % LV Ejection Fraction 2C AL 37.4 % LA Diameter 3.4 cm LA Width 3.5 cm LA Height 3.3 cm RA Width 3.1 cm RA Height 3.1 cm Aorta at Sinotubular Diameter 3.4 cm M-MODE Aortic Annulus Diameter 3.4 cm LA Ao Ratio MM 0.9 MV E Point Septal Separation 0.7 cm DOPPLER AV Peak Velocity 78.0 cm/s LVOT Peak Velocity 41.0 cm/s AV Area Cont Eq vti 1.9 cm squared AV Area Cont Eq pk 1.8 cm squared MV Area PHT 5.0 cm squared Mitral E to A Ratio 1.1 MV E' Velocity 64.0 cm/s TR Peak Velocity 260.3 cm/s TR Peak Gradient 27.1 mmHg TV Peak E Velocity 54.0 cm/s Right Atrial Pressure 8.0 mmHg Pulmonary Artery Systolic Pressu 35.1 mmHg PV Peak Velocity 89.3 cm/s RV Acceleration Time 0.1 s RV Ejection Time 0.2 s RV AcT/ET 0.3 FINDINGS Left Ventricle Severe diffuse hypokinesia of the septum, anteroseptum and the LV apex. Mild diffuse hypokinesia of the inferior and inferolateral wall segments. Overall ejection fraction around 25-30% Right Ventricle The right ventricle appears mildly dilated with a slightly diminished ejection fraction . echodense structures traversing the right ventricular cavity, possible moderator band Right Atrium The right atrium is normal in size. Left Atrium The left atrium is normal in size. Mitral Valve Thickened mitral valve. No masses or vegetations noted Aortic Valve Thickened aortic valve. No masses or vegetations Tricuspid Valve No gross abnormalities noted; thickened tricuspid annulus Pulmonic Valve Pulmonic valve not well visualized. Pericardium No pericardial effusion. Aorta Normal aortic annulus size. CONCLUSIONS 1. Multiple wall motion normalities with a diminished ejection fraction of 25 to 30%. 2. Minimally thickened aortic and mitral valves. 3. No pericardial effusion. 4. The right ventricle is mildly dilated with slightly diminished ejection fraction. 5. Echodensity in the right ventricle, possible moderator band. 6. No definite masses or vegetations 7. No previous studies are available for comparison Technically difficult study because of the poor ultrasonic window. Dr. Small was informed about these findings Dr Ml Lyman MD [facility] (Electronically Signed) Final Date: 10 July 2020 13:27 S
[2020-07-10 08:46] LABS: Glucose Point of Care 136 mg/dL (70-110)
--- NOTE | 2020-07-10 08:57 | P.PN_ITS ---
Subjective Subjective: Interval history: Lethargic. Vitals/I&O/Wt Last Vital Signs Temp 98.9 F 07/10/20 04:00 Pulse 108 H 07/10/20 08:02 Resp 29 H 07/10/20 07:55 BP 82/63 07/10/20 06:35 Pulse Ox 969 H 07/10/20 08:02 07/09/20 07/10/20 07/10/20 22:59 06:59 14:59 Intake Total 1083.3 / 1083.3 3802.500 / 4885.800 34.790 / 34.790 Output Total 800 / 800 Balance 1083.3 / 1083.3 3002.500 / 4085.800 34.790 / 34.790 Weight last 48 hrs Weight 63.503 kg Physical Exam Const: COMMON NORMALS: no acute distress GENERAL APPEARANCE: lethargic ORIENTATION/CONSCIOUSNESS: Yes lethargic OTHER: BiPAP HENMT: COMMON NORMALS: oropharynx normal Eye: OTHER: Pupils equal. Possibly somewhat disconjugate gaze. Unkown baseline. Lethargic/obtunded and not following commands. Neck/C-Spine: COMMON NORMALS: no JVD Resp: COMMON NORMALS: normal respiratory effort and clear to auscultation bilaterally AUSCULTATION: clear to auscultation bilaterally Cardio: COMMON NORMALS: no JVD, regular rhythm, S1 normal heart sound present, S2 normal heart sound present and No murmurs present (Cardio) RATE: tachycardic RHYTHM: regular rhythm HEART SOUNDS: S1 normal heart sound present and S2 normal heart sound present GI: COMMON NORMALS: Normal to inspection, nondistended, normoactive bowel sounds present, Soft to palpation and non-tender PALPATION: Yes Soft to palp ation Extremity: COMMON NORMALS: no joint enlargement and no pedal edema OTHER: Mottling, cyanosis noted of distal digits, feet Neuro: SENSORIUM/ORIENTATION: Yes lethargic and Yes other (Not following commands. Some spontaneous movements. ) SENSORY EXAM: Yes other (Unable to assess) MOTOR EXAM: Other motor observations present (unable to assess, but spasticity and limb contracture noted on the R) Skin: COMMON NORMALS: no rashes or lesions noted GENERAL SKIN EXAM: no rashes or lesions noted Urinary Catheter Management^: Landon: Cath Placed During This Visit: yes Reason for Continuing Indwelling Catheter: Accurate Measurement of Urinary Output in Critically Ill Patients Urinary Catheter Date of Insertion: 07/10/20 Urinary Catheter Time of Insertion: 00:20 Data : 07/10/20 04:44 07/10/20 04:44 Micro: Microbiology 07/10/20 02:00 Bacterial Antigens - Final Urine Kidney 07/10/20 02:00 Legionella Urinary Antigen - Final Urine Catheterized 07/09/20 20:00 Blood Culture - Preliminary Blood SPECIMEN COLLECTED 07/09/20 20:16 Blood Culture - Preliminary Blood SPECIMEN COLLECTED A&P Assessment and plan (1) Septic shock: Persistent short. Currently on 2 pressors. Phenylephrine 200. Levophed at 14. Hydronephrosis noted on CT. Complicated urinary tract infection. 4.9 mm nonobstructing left renal calculus, as well as stone seen in dependent portion of the bladder. Per report imaging had been discussed with the urologist at this time appears has had a passed stone. No additional invasive procedure needed at this time. Currently too unstable to be moved anywhere. We are going to additionally assess fluid responsiveness of CO, give additional boluses depending on results. Add vasopressin. Attempt to wean down phenylephrine. Increase Levophed if necessary. Schedule hydrocortisone. Famotidine IV. Continue heparin prophylaxis. With peripheral vasoconstriction. Cool, mottled extremities. Assess TTE. Given current clinical condition, partial response to 2 vasopressors, overall prognosis is guarded and may not be good. The phone number listed for his is not working. Could not reach her to santi rios. departmental secretary will investigate if a working number can be found. Status: Acute (2) Acute encephalopathy: Continue treatment of underlying conditions with complicated UTI, sepsis, septic shock acute respiratory failure, pneumonia. Some twitching reported earlier. History of hemorrhagic CVA. We will load him with Keppra. CT head without acute pathology. Appears to have findings concerning for possible NPH, will need to have additional follow-up. Status: Acute (3) PHIL (acute kidney injury): Creatinine with minute improvement down to 2.5. Monitor urine output. Maintain blood pressures. Status: Acute (4) UTI (urinary tract infection): Appears to have transient obstructive uropathy, pyelonephritis. Suspected passed stone noted in the urinary bladder. Continue treatment for nonobstructive pyelonephritis, severe sepsis, septic shock. Continue IV antibiotics. Follow-up cultures. Status: Acute (5) Community acquired pneumonia: Follow-up urine bacterial antigens. At this time able to obtain sputum cultures. Continue IV antibiotics. Currently FiO2 65% on BiPAP support. Status: Acute (6) Vomiting: So far without recurrence. Possibly related to ureteral lithiasis, pyelonephritis, sepsis, etc. Famotidine added as above. Will assess rapid Covid. Status: Acute (7) Acute respiratory failure with hypoxia: Status: Acute (8) Dehydration: Hold off on additional fluid challenge until fluid responsiveness reassessed. There is concern for fluid overload. Status: Acute (9) Troponin level elevated: History of hemorrhagic CVA. Unknown history of cardiovascular disease otherwise. Troponin not rising to a peak. Suspect this is demand ischemia secondary to septic shock, general medical condition, in the setting of PHIL. May benefit from additional risk stratification once condition stabilizes. Assess TTE. Status: Acute Additional A&P Information DM2: SSI Sinus tachycardia DVT prophylaxis Heparin Landon catheter placement,: 07/10/2020 Central line placement: 07/09/2020 Attestations Medical Necessity Statement*: Continue admission for assessment management of septic shock. Respiratory failure. Critical Care Time: In addition to known critical issues, 50 minutes critical care time spent on immediately life-threatening issues including septic shock, severe sepsis, complicated UTI, respiratory failure, pneumonia, management of pressors, fluids, with assessment of hemodynamics, volume status, evaluation for additional charges of shock. Coding Level of Care Code Acute Assistant Wrestling Coach for g Fwd Exam Comprehensive Diagnoses Septic shock A41.9; R65.21 Acute encephalopathy G93.40 PHIL (acute kidney injury) N17.9 UTI (urinary tract infection) N39.0 Community acquired pneumonia J18.9 Vomiting R11.10 Acute respiratory failure with hypoxia J96.01 Dehydration E86.0 Troponin level elevated R77.8
[2020-07-10] MEDS: hydrocortisone 100 mg/2 mL SDV IVP ×3 (09:18→20:34)
[2020-07-10] MEDS: famotidine 20 mg/2 mL INJ IVP ×2 (09:18→20:35)
[2020-07-10] MEDS: phenylephrine inj 25 MG in sodium chloride 0.9% 250 ML 90.9 MG IV (09:24)
[2020-07-10 12:00] LABS: Glucose Point of Care 100 mg/dL (70-110)
[2020-07-10 12:43] LABS: SARS Covid-2 Antigen Negative (Negative)
[2020-07-10] MEDS: aztreonam 1,000 MG in sodium chloride 0.9% (plus) 50 ML 100 MG IV (13:02)
[2020-07-10 13:52] LABS: Albumin Level 2.8 g/dL (3.5-5.2); Alkaline Phosphatase 106 IU/L (40-130); Anion Gap 25.3 (5-19); Blood Urea Nitrogen 63 mg/dL (8-23); Calcium 7.9 mg/dL (8.5-10.5); Carbon Dioxide 10 mmol/L (22-29); Chloride 108 mmol/L (98-107); Globulin 2.4 g/dL (1.3-4.6); Glomerular Filtration Rate 21.7 mL/min (90-130); Glucose 184 mg/dL (65-115); Osmolality Calculated 311 mOsm/kg (285-295); Potassium 4.3 mmol/L (3.5-5.1); Sodium 139 mmol/L (136-145); Total Bilirubin 0.8 mg/dL (0.15-1.2); Total Protein 5.2 g/dL (6.6-8.7)
[2020-07-10 14:15] LABS: Alanine Aminotransferase 1099 U/L (0-41)
[2020-07-10 14:22] LABS: Aspartate Amino Transferase 1109 U/L (0-40)
[2020-07-10] MEDS: DOBUTamine drip 500 MG/250 ML PREMIX 9.5 MG IV (15:02)
[2020-07-10 15:37] LABS: Glucose Point of Care 141 mg/dL (70-110)
--- NOTE | 2020-07-10 18:52 | PC.NURSE ---
Shift Summary Patient in critical condition early on, started on 3 pressers and NICOM'ed per Dr Delacruz, Patient ECHO showed low EF so we added Doubutamine and weaned off the STEPAN, then I weaned off the Vaso, patient is starting to make urine output, Jayme notified of NICOM Cheetah results and Positive blood cultures 1 out of 4 at 1530, patient already on broad spectrum antibiotics. Talked to about goals of care and plan, doesn't want to escalate care if patient was to decline rapidly, called to recalrify on code status but she did not answer. Dr Delacruz has been updated throughout the day, has called often and received frequent updates. Patient now having better urine output and tolerating 4L nasal Cannula.
[2020-07-10 20:07] LABS: Glucose Point of Care 257 mg/dL (70-110)
[2020-07-11] VITALS (295 sets, daily range): BP systolic 60–140; BP diastolic 42–95; PULSE 74–144; RESP 1–24; TEMP 35.7–37.3; O2SAT 86–100
[2020-07-11] MEDS: heparin 5,000 unit/mL INJ 1 mL 5000 UNIT SUBCUT ×3 (01:12→17:26)
[2020-07-11] MEDS: aztreonam 1,000 MG in sodium chloride 0.9% (plus) 50 ML 100 MG IV ×2 (01:13→13:14)
[2020-07-11] MEDS: cefepime 1,000 MG in sodium chloride 0.9% (plus) 50 ML 100 MG IV (01:15)
[2020-07-11] MEDS: hydrocortisone 100 mg/2 mL SDV IVP ×4 (02:42→19:57)
[2020-07-11] MEDS: vancomycin 500 MG in sodium chloride 0.9% (plus) 100 ML 100 MG IV (02:42)
--- NOTE | 2020-07-11 02:55 | PC.NURSE ---
Patient had fecal incontinence. During cleaning/repositioning pt vomited in Bipap mask. RN at bedside and witnessed incident happen. RN removed Bipap mask, suctioned patient with yaunker, and placed on Oxymask 7L. SPO2 99%. Patient map pressures decreased significantly. Levo and Dobutamine gtt titrated as indicated. See MAR flowsheet. MD carbon coater machine operator notified. RT notified of changes as well.
--- NOTE | 2020-07-11 04:55 | XRR_ITS ---
PROCEDURE INFORMATION: Exam: XR Chest Exam date and time: 07/11/2020 5:23 AM Age: 70 years old Clinical indication: Shortness of breath; Patient HX: Vomited on bipap; Additional info: Vomitted on bipap TECHNIQUE: Imaging protocol: XR of the chest Views: 1 view. COMPARISON: CR XR chest 1V portable [id number] 07/09/2020 11:12 PM FINDINGS: Lungs: Peribronchial cuffing, indistinct pulmonary vasculature and increased interstitial markings suggest pulmonary edema although a bilateral interstitial pneumonia cannot be excluded. Today, there are hazy opacity seen in the left lower hemithorax, findings suspicious for aspiration pneumonia. Pleural spaces: Unremarkable. No pleural effusion. No pneumothorax. Heart/Mediastinum: Unremarkable. No cardiomegaly. Bones/joints: Unremarkable. XR/XR chest 1V portable [id number] IMPRESSION: 1. Probable developing aspiration pneumonia in the left lower hemithorax. 2. Otherwise stable appearance of the chest compared with 07/09/2020.
[2020-07-11] MEDS: FUROsemide 10 mg/mL SDV 4mL 40 MG IVP (05:15)
--- NOTE | 2020-07-11 06:05 | ECG_ITS ---
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 Measurements Intervals [place] Rate: 128 P: ND: QRS: 45 QRSD: 114 T: -33 QT: 306 QTc: 447 Interpretive Statements ATRIAL FIBRILLATION WITH RAPID VENTRICULAR RESPONSE POSSIBLE ANTERIOR MYOCARDIAL INFARCTION [30 ms Q WAVE IN V3/V4, OR R < 0.2 mV IN V4], PROBABLY OLD ABNORMAL RHYTHM ECG Compared to ECG 07/09/2020 23:54:20 Aberrant conduction of supraventricular beat(s) no longer present Ventricular premature complex(es) no longer present T-wave abnormality no longer present Possible ischemia no longer present Myocardial infarct finding still present Electronically Signed On 07-11-2020 22:54:38 CDT by Ml Lyman M.D. [id number]
--- NOTE | 2020-07-11 06:17 | PC.NURSE ---
New orders; RN updated MD plant control aide of patient's change in status. New/returned findings of irregular and increased HR. Gtt titirations relayed. New orders to obtain EKG for rhythm assessment, and IVP 150mg Amiodarone PRN ONCE.
[2020-07-11 06:55] LABS: Basophils # 0.1 10^3/uL (0.0-0.1); Basophils % 0.9 %; Hematocrit 30.4 % (42.0-52.0); Hemoglobin 9.9 g/dL (11.7-16.6); Lymphocytes # 0.3 10^3/uL (0.8-4.8); Lymphocytes % 1.7 %; Mean Corpuscular HGB Conc 32.6 g/dL (30.0-36.0); Mean Corpuscular Hemoglobin 30.3 pg (28.0-34.0); Monocytes # 0.4 10^3/uL (0.2-0.9); Monocytes % 2.5 %; Neutrophils # 14.47 10^3/uL (1.8-7.7); Neutrophils % 93.6 %; Nucleated Red Blood Cells % 0 %; Platelet Count 86 10^3/cmm (130-400); Red Blood Count 3.27 10^6/uL (4.1-5.3); Red Cell Distribution Width 14.3 % (12.1-15.1); White Blood Count 15.5 10^3/uL (4.0-10.0)
[2020-07-11 07:19] LABS: Albumin Level 2.6 g/dL (3.5-5.2); Alkaline Phosphatase 87 IU/L (40-130); Anion Gap 15.6 (5-19); Blood Urea Nitrogen 72 mg/dL (8-23); Calcium 7.6 mg/dL (8.5-10.5); Carbon Dioxide 17 mmol/L (22-29); Chloride 109 mmol/L (98-107); Globulin 2.3 g/dL (1.3-4.6); Glomerular Filtration Rate 20.9 mL/min (90-130); Glucose 249 mg/dL (65-115); Magnesium 1.9 mg/dL (1.7-2.3); Osmolality Calculated 316 mOsm/kg (285-295); Potassium 3.6 mmol/L (3.5-5.1); Sodium 138 mmol/L (136-145); Total Bilirubin 0.5 mg/dL (0.15-1.2); Total Protein 4.9 g/dL (6.6-8.7)
[2020-07-11 07:31] LABS: Alanine Aminotransferase 2213 U/L (0-41)
[2020-07-11 07:51] LABS: Aspartate Amino Transferase 2322 U/L (0-40)
[2020-07-11 07:59] LABS: Glucose Point of Care 267 mg/dL (70-110)
--- NOTE | 2020-07-11 09:33 | PC.NURSE ---
Patient's blood pressure decreased to 60/42. Nurse lowered head of bed and restarted vasopressin
[2020-07-11] MEDS: famotidine 20 mg/2 mL INJ IVP ×2 (09:43→19:58)
--- NOTE | 2020-07-11 10:06 | PC.NURSE ---
Patient went into a run of Vtach, about [address] Ortiz. After restarting the vasopressin, increasing levophed, and lowering the head of bed, the aptient pressure has slowly started to increase. It is currently 75/56 with a map of 62. Nurse alerted Dr ortiz. Was advised to continue current ,easures and titrate medications as indicated.
[2020-07-11 10:39] LABS: INR 1.83 (0.8-1.2)
[2020-07-11 10:40] LABS: Fibrinogen 546 mg/dL (174-498); Partial Thromboplastin Time 50.6 SECONDS (23.9-36.7)
[2020-07-11 10:50] LABS: D Dimer 4.24 ug/mIFEU (0-0.59)
--- NOTE | 2020-07-11 11:18 | P.PN_ITS ---
Subjective Subjective: Interval history: Lethargic, not we can perform you, reportedly was responding, shifting gaze earlier to pain/sternal rub. Vitals/I&O/Wt Last Vital Signs Temp 96.3 F L 07/11/20 08:00 Pulse 103 H 07/11/20 10:20 Resp 17 07/11/20 10:20 BP 79/60 07/11/20 10:20 Pulse Ox 93 07/11/20 10:20 07/10/20 07/11/20 07/11/20 22:59 06:59 14:59 Intake Total 360.323 / 2279.576 639.864 / 2919.440 275.100 / 275.100 Output Total 500 / 500 450 / 950 Balance -139.677 / 1779.576 189.864 / 1969.440 275.100 / 275.100 Weight last 48 hrs Weight 63.503 kg Physical Exam Const: COMMON NORMALS: no acute distress GENERAL APPEARANCE: lethargic ORIENTATION/CONSCIOUSNESS: Yes lethargic OTHER: NC HENMT: COMMON NORMALS: oropharynx normal Eye: OTHER: Pupils equal. Mild disconjugate gaze. Unkown baseline. Lethargic/obtunded and not following commands. Neck/C-Spine: COMMON NORMALS: no JVD Resp: COMMON NORMALS: normal respiratory effort and clear to auscultation bilaterally AUSCULTATION: clear to auscultation bilaterally Cardio: COMMON NORMALS: no JVD, regular rhythm, S1 normal heart sound present, S2 normal heart sound present and No murmurs present (Cardio) RATE: tachycardic RHYTHM: regular rhythm HEART SOUNDS: S1 normal heart sound pre sent and S2 normal heart sound present GI: COMMON NORMALS: Normal to inspection, nondistended, normoactive bowel sounds present, Soft to palpation and non-tender PALPATION: Yes Soft to palpation Extremity: COMMON NORMALS: no joint enlargement and no pedal edema OTHER: Mottling, cyanosis noted of distal digits, feet resolved Neuro: COMMON NORMALS: moves all extremities SENSORIUM/ORIENTATION: Yes lethargic SENSORY EXAM: Yes other (Unable to assess) MOTOR EXAM: Other motor observations present (unable to assess, but spasticity and limb contracture noted on the R) Skin: COMMON NORMALS: no rashes or lesions noted GENERAL SKIN EXAM: no rashes or lesions noted Urinary Catheter Management^: Landon: Cath Placed During This Visit: yes Reason for Continuing Indwelling Catheter: Accurate Measurement of Urinary Output in Critically Ill Patients Urinary Catheter Date of Insertion: 07/10/20 Urinary Catheter Time of Insertion: 00:20 Data : 07/11/20 04:32 07/11/20 04:37 Micro: Microbiology 07/10/20 02:00 Legionella Urinary Antigen - Final Urine Catheterized Urine Culture - Preliminary Gram Negative Rods 07/09/20 20:00 Blood Culture - Preliminary Blood Gram Negative Rods 07/09/20 20:16 Blood Culture - Preliminary Blood Gram Negative Rods 07/10/20 12:00 C.difficile Toxin B Gene (PCR) - Final Stool Routine Collection 07/10/20 02:00 Bacterial Antigens - Final Urine Kidney A&P Assessment and plan (1) Septic shock: Persistent septic shock, possibly contribution with cardiogenic shock secondary to low EF, inadequate response. Today extremities noted to be perfusing well, no mottling or cyanosis noted. Dustin and warm. Yesterday weaned off vasopressin, weaned down to as low as 6 mcg of Levophed. Continued on 1 of dobutamine. Overnight developed A. fib with RVR. This morning we adjusted pressors, decreasing dobutamine rate to 0.5. He was started on amiodarone drip. Had a short nonsustained run of VT Little bit later this morning again hypotensive, requiring higher dose of Levophed, and vasopressin to be restarted. Continue hydrocortisone. Famotidine IV. Continue heparin prophylaxis. Gram-negative rods in blood. Continue cefepime. Continue empiric coverage with aztreonam, with worsening renal function stop vancomycin. Check MRSA PCR Worsening thrombocytopenia, likely related to sepsis. Requested peripheral smear. Shock liver, AST up to 2322, ALT 2213. T bili, alk phos normal. INR up to 1.8. Requested DIC panel. Does not appear to be in DIC. Could not reach his for update and to discuss further. Yesterday family were indicated nurse that if condition were to decline, not to escalate therapy further with intubation and additional aggressive measures, however, will need to confirm this with the family. We will try to call his back again. Complicated UTI on admission. Given multiorgan injury, persistent septic shock, and in the setting of poor functional capacity baseline, overall prognosis is poor. Status: Acute (2) Acute encephalopathy: Continue treatment of underlying conditions with complicated UTI, sepsis, septic shock acute respiratory failure, pneumonia. Some twitching reported earlier. History of hemorrhagic CVA. We will load him with Keppra. CT head without acute pathology. Appears to have findings concerning for possible NPH, will need to have additional follow-up. Status: Acute (3) PHIL (acute kidney injury): Creatinine with minute improvement down to 2.5. Monitor urine output. Maintain blood pressures. Status: Acute (4) UTI (urinary tract infection): Appears to have transient obstructive uropathy, pyelonephritis. Suspected passed stone noted in the urinary bladder. Continue treatment for nonobstructive pyelonephritis, severe sepsis, septic shock. Continue IV antibiotics. Follow-up cultures. Status: Acute (5) Community acquired pneumonia: Negative urine bacterial antigens. At this time unable to obtain sputum cultures. Continue cefepime, aztreonam. MRSA nares. Status: Acute (6) Vomiting: Without recurrence. Possibly related to urolithiasis, pyelonephritis, sepsis Famotidine added as above. Negative rapid Covid. Status: Acute (7) Acute respiratory failure with hypoxia: Status: Acute (8) Dehydration: Resolved. Status: Acute (9) Troponin level elevated: History of hemorrhagic CVA. Unknown history of cardiovascular disease otherwise. Troponin not rising to a peak. Suspect this is demand ischemia secondary to septic shock, general medical condition, in the setting of PHIL. Noted decrease in EF, but currently warm, extremities perfused. No sign of cardiogenic shock. Repeat limited study once hypotension resolves. Would benefit from additional risk stratification once condition stabilizes. Status: Acute (10) Shock liver: Status: Acute (11) Thrombocytopenia: Status: Acute Additional A&P Information DM2: SSI Sinus tachycardia DVT prophylaxis Heparin Landon catheter placement,: 07/10/2020 Central line placement: 07/09/2020 Attestations Medical Necessity Statement*: Continue admission for assessment management of persistent septic shock. Critical Care Time: The high probability of a clinically significant, sudden or life threatening deterioration of the patient's [multiple organ] system(s) required my full and direct attention, intervention and personal management. The critical care time is as shown. This time is in addition to time spent performing any reported procedures but includes the following: [x] Data and vital sign review and interpretation [x] Patient assessment, examination and intervention [x] Documentation [x] Medication orders and management Critical Care Time (min): 48 Coding Level of Care Code Acute Washing Machine Loader for Chg Fwd Diagnoses Septic shock A41.9; R65.21 Acute encephalopathy G93.40 PHIL (acute kidney injury) N17.9 UTI (urinary tract infection) N39.0 Community acquired pneumonia J18.9 Vomiting R11.10 Acute respiratory failure with hypoxia J96.01 Dehydration E86.0 Troponin level elevated R77.8 Shock liver K72.00 Thrombocytopenia D69.6
--- NOTE | 2020-07-11 11:26 | PC.NURSE ---
Patient continues to have an increased need for levophed and vasopressin. Nurse used cheetah monitor. SHows a SVI change of -0.6%. Not fluid responsive.
[2020-07-11 11:43] LABS: Glucose Point of Care 258 mg/dL (70-110)
[2020-07-11 13:02] LABS: LAB Peripheral Smear Sent for Review
--- NOTE | 2020-07-11 13:35 | PC.NURSE ---
Shortly after turning patient to clean a bowel movement, the pt vomited. Nurse turned patient to the side and suctioned. Pt's O2 saturaton did not decrease. Pt did not gag or cough and wor of breathing did not increase. Nurse provided oral care.
--- NOTE | 2020-07-11 14:43 | XRR_ITS ---
PROCEDURE INFORMATION: Exam: XR Chest Exam date and time: 07/11/2020 3:05 PM Age: 70 years old Clinical indication: Device placement; Ng tube; Additional info: Verify ng tube placement TECHNIQUE: Imaging protocol: XR of the chest Views: 1 view. COMPARISON: CR XR chest 1V portable [id number] 07/11/2020 5:09 AM FINDINGS: Tubes, catheters and devices: Stable right IJ line with tip over the atrial caval junction. Enteric tube tip is over the body of the stomach (mid stomach). Lungs: Mild right-sided pneumonia with moderate left-sided pneumonia. Pleural spaces: Unremarkable. No pleural effusion. No pneumothorax. Heart/Mediastinum: Unremarkable. No cardiomegaly. Bones/joints: Unremarkable. XR/XR chest 1V portable [id number] IMPRESSION: 1. Stable right IJ line with tip over the atrial caval junction. 2. Enteric tube tip is over the body of the stomach (mid stomach). 3. Mild right-sided pneumonia with moderate left-sided pneumonia.
--- NOTE | 2020-07-11 15:00 | PC.NURSE ---
NG tube placed into left nare. 16 Fr tube. Auscultated and aspirated. Nurse ordered Xray to verify placement.
[2020-07-11 17:50] LABS: Glucose Point of Care 293 mg/dL (70-110)
--- NOTE | 2020-07-11 18:06 | PC.NURSE ---
Pt Misty: [phone], or [phone]
--- NOTE | 2020-07-11 18:09 | PC.NURSE ---
Shift Summary: Started amiodarone for Afib control. Afib with rvr in the 140's at beggining or shift. Currently in Afib with a rate fairly controlled in the 80's. Vasopressin restarted and currently at 0.5, levophed at 14, amiodarone at 0.5, and dobutamine at 0.5. Pt vomited again, but did not appear to aspirate. Pt now has a slight gag reflex and now has a strong intermittent cough, neither of which were present at beginning of shift. NG tube placed and verified via xray. Currently on light intermittent suction. Nurse spoke with the patient's and she want's pt to be full code and is okay with intubation. She says she has POA, but forgot the paperwork. will try to bring it it.
--- NOTE | 2020-07-11 20:39 | PC.NURSE ---
Received bed side shift report from off going nurse. Pt's plan of care reviewed. Pt is resting in bed. Respirations are even and unlabored. No s/sx of distress noted. Pt appears to be resting comfortably at this time. Pt responds to touch and voice stimuli. When awake pt is able to follow me with his eyes and respond to questions. Unfortunately pt mumbles his words and seems to mumble to same thing with each responds. Pt coninues to be on pressors to manage blood pressure. Bed in lowest and locked position, call light within reach, x's 3 rails up. Will continue to monitor pt.
[2020-07-12] VITALS (291 sets, daily range): BP systolic 101–142; BP diastolic 63–88; PULSE 57–98; RESP 0–26; TEMP 35.7–36.6; O2SAT 87–100
[2020-07-12] MEDS: heparin 5,000 unit/mL INJ 1 mL 5000 UNIT SUBCUT ×2 (01:17→08:08)
[2020-07-12] MEDS: aztreonam 1,000 MG in sodium chloride 0.9% (plus) 50 ML 100 MG IV ×2 (01:20→12:46)
[2020-07-12] MEDS: cefepime 1,000 MG in sodium chloride 0.9% (plus) 50 ML 100 MG IV (02:08)
[2020-07-12] MEDS: hydrocortisone 100 mg/2 mL SDV IVP ×4 (03:59→20:03)
[2020-07-12 04:47] LABS: Basophils # 0.1 10^3/uL (0.0-0.1); Basophils % 0.8 %; Eosinophils # 0.2 10^3/uL (0.0-0.8); Eosinophils % 1.1 %; Hematocrit 30.3 % (42.0-52.0); Hemoglobin 10.1 g/dL (11.7-16.6); Lymphocytes # 0.4 10^3/uL (0.8-4.8); Lymphocytes % 2.3 %; Mean Corpuscular HGB Conc 33.3 g/dL (30.0-36.0); Mean Corpuscular Hemoglobin 30.1 pg (28.0-34.0); Mean Corpuscular Volume 90.2 fL (80-94); Monocytes % 5.1 %; Neutrophils # 16.22 10^3/uL (1.8-7.7); Neutrophils % 87.9 %; Nucleated Red Blood Cells % 0.2 %; Platelet Count 64 10^3/cmm (130-400); Red Blood Count 3.36 10^6/uL (4.1-5.3); Red Cell Distribution Width 14.2 % (12.1-15.1); White Blood Count 18.5 10^3/uL (4.0-10.0)
[2020-07-12 05:05] LABS: Albumin Level 2.8 g/dL (3.5-5.2); Alkaline Phosphatase 92 IU/L (40-130); Anion Gap 19.6 (5-19); Blood Urea Nitrogen 80 mg/dL (8-23); Calcium 7.8 mg/dL (8.5-10.5); Carbon Dioxide 16 mmol/L (22-29); Chloride 103 mmol/L (98-107); Globulin 2.7 g/dL (1.3-4.6); Glomerular Filtration Rate 19.4 mL/min (90-130); Glucose 231 mg/dL (65-115); Osmolality Calculated 311 mOsm/kg (285-295); Potassium 3.6 mmol/L (3.5-5.1); Sodium 135 mmol/L (136-145); Total Bilirubin 0.6 mg/dL (0.15-1.2); Total Protein 5.5 g/dL (6.6-8.7)
[2020-07-12 05:36] LABS: Slide Review Slide Review Perform
[2020-07-12 05:38] LABS: Alanine Aminotransferase 3853 U/L (0-41)
[2020-07-12 05:40] LABS: Aspartate Amino Transferase 2494 U/L (0-40)
[2020-07-12 07:48] LABS: Glucose Point of Care 261 mg/dL (70-110)
[2020-07-12] MEDS: levothyroxine 100 mcg Tablet PO (08:01)
--- NOTE | 2020-07-12 08:38 | CT_ITS ---
WS: [id number] CT HEAD TECHNIQUE: Noncontrast CT of the head obtained from the skullbase to the vertex. CLINICAL INFORMATION: AMS COMPARISON: July 09, 2020 DLP: 3044.[address] scans at [facility] use at least one of these dose optimization techniques: automat ed exposure control; mA and/or kV adjustment per patient size (includes targeted exams where dose is matched to clinical indication); or iterative reconstruction. FINDINGS: Some images degraded due to motion Chronic postoperative changes left parietal julian holes. Right frontoparietal craniotomy. No evidence of intracranial hemorrhage or mass effect. Ventricular system and basal cisterns are kramer nt. Moderate small vessel changes with moderate parenchymal volume loss. No extra-axial fluid collect ions. Chronic encephalomalacia in the right frontal and left parietal lobes. Chronic encephalomalacia left temporal lobe. Chronic infarcts involving the left basal ganglia and midbrain. Mucosal thickeni ng left mastoid air cells. CT/CT head wo con* [id number] IMPRESSION: 1. No evidence of intracranial hemorrhage or mass effect. 2. Moderate small vessel changes with moderate parenchymal volume loss. 3. Chronic encephalomalacia and chronic infarcts described above. 4. Prior right frontoparietal craniotomy and left parietal julian holes 5. No significant interval changes.
--- NOTE | 2020-07-12 08:52 | CT_ITS ---
WS: [id number] CT CHEST, ABDOMEN, AND PELVIS TECHNIQUE: Noncontrast CT of the chest, abdomen, and pelvis with coronal and sagittal reformatted taniya ges. CLINICAL INFORMATION: AMS, HYPOXIA, WORSENING RENAL FIALURE COMPARISON: July 10, 2020 DLP: 1720.[address] scans at [facility] use at least one of these dose optimization techniques: automat ed exposure control; mA and/or kV adjustment per patient size (includes targeted exams where dose is matched to clinical indication); or iterative reconstruction. CT CHEST: Small bilateral pleural effusions. Bibasilar atelectasis. Hazy groundglass airspace infiltrates in th e left greater than right upper lobes. Vascular calcification. Coronary calcification. No mediastinal or hilar lymphadenopathy. Enteric tube. Mild thoracic kyphosis. CT ABDOMEN AND PELVIS: Some images degraded due to beam hardening artifact from arms overlying the ab domen. Patient unable to raise arm above head. Noncontrast liver is normal. Noncontrast spleen is normal. Enteric tube. Normal GE junction. Normal c aliber abdominal aorta. Mild aortic calcification. Landon catheter. Small amount of free fluid in the pelvis. Mild mesenteric edema and body wall anasarca similar to previous. No hydronephrosis in right kidney. Small nonobstructing left hydronephrosis has improved. There is a new migrated left renal pel yumiko calculus measuring 4 mm. No significant hydronephrosis. Left ureter appears decompressed. Fat-containing inguinal hernias. Normal lumbar spine. No other significant changes from previous. CT/CT chest abd pel wo con IMPRESSION: 1. Small bilateral pleural effusions with bibasilar atelectasis. 2. Hazy groundglass infiltrates in the left greater than right upper lobes. Th is is nonspecific but can be seen with COVID 19 pneumonia. 3. Left hydronephrosis has improved. Migrated 4 mm left renal calculus now in the left renal pelvis. Left ureter is decompressed. 4. No hydronephrosis in right kidney. 5. Small amount of free fluid in the pelvis. Landon catheter. 6. No additional unchanged from previous.
[2020-07-12] MEDS: FUROsemide 10 mg/mL SDV 4mL 40 MG IVP ×2 (10:02→17:33)
[2020-07-12] MEDS: famotidine 20 mg/2 mL INJ IVP ×2 (10:02→20:03)
[2020-07-12] MEDS: dilTIAZem 60 mg Tablet PO ×2 (10:03→15:17)
[2020-07-12 12:35] LABS: Glucose Point of Care 268 mg/dL (70-110)
[2020-07-12 12:43] LABS: ABG PCO2 26.7 mmHg (35-45); ABG PH Result 7.39 (7.35-7.45); Arterial Blood Gas Hematocrit 32.1 % (42-52); Base Excess ABG -7.5 mmol/L (-2.0-2.0); Blood Gas Allen Test Pos; Blood Gas Operator Identificat CAK; Blood Gas Sample Site Brachial, left; Blood Gas Sample Type Arterial; HCO3 ABG 16.2 mmol/L (22-26); Oxygen Device OXY MASK
--- NOTE | 2020-07-12 13:22 | PM.PN ---
Subjective Subjective: Interval history: This morning patient was examined, he remains on 0.5 of dobutamine, he is on minimal amiodarone drip, still in atrial fib fibrillation with rate controlled, patient is nonresponsive to sternal rub, pupils minimally reactive, does withdraw from pain to some degree, does not follow commands, has a history of hemorrhagic CVA, poor baseline level of functioning, evidence of multiorgan failure, worsening renal failure, remains on oxymask Patient's was at bedside this afternoon: -She tells me that patient had a CVA in 2013, after that he did have improved gains, could ambulate, had better quality of life, however in 2019 he developed a subdural hematoma, and has had a slow decline since then, she tells me that he does not have a good quality of life at home, although he does really is watch TV, he can ambulate with assistance, but she tells me that for the last few months it looks like he had given up -I reviewed patient's healthcare power of estate attorney directives with -In the directive paperwork it says that if the likelihood of patient having a meaningful recovery is fairly unlikely, to stop any life-sustaining measures, he does not want to have dialysis, does not want to have CPR, does not want to have mechanical ventilation, does not want a feeding tube, does not want aggressive interventions -I confirmed this with patient's , she does not want aggressive interventions -Currently my worry is that patient has worsening multiorgan failure, worsening renal failure, worsening respiratory failure, in addition to worsening heart failure, and significant [id number] encephalopathy, is nonresponsive -Although patient is off pressors, he is on broad-spectrum antibiotic therapy, atrial fibrillation is better controlled -Currently I feel that patient's status is critical, prognosis is poor -My worry is is that he might develop worsening respiratory failure, developed worsening renal failure, or worsening heart failure resulting in cardiac arrest -I went over this in detail with patient's , she does not want him to be intubated, she does not want to have aggressive interventions, try minimally invasive interventions as best that we can -For renal failure, I will try Lasix pushes to see if his urine output improves, however he continues to have worsening renal failure, decreased urine output, she does not want him to have dialysis, nor does his healthcare power of a directive advocate for this -In terms of heart failure, concerns for fluid overload or avoiding fluids, his echo does show an EF of 25 to 30%, multiple wall motion abnormalities, I cannot rule out an underlying cardiovascular etiology, however for now he does not have the stability to undergo cardiac testing, the risks would outweigh the benefits, patient's voiced recently, all questions answered, and agreed to minimally invasive interventions for now -The plan is patient's would like to give him another 12 to 24 hours, and see how his mentation, his kidney function, and ultimately his multiorgan failure progresses -If he continues to worsen, she is open to the idea of comfort care, and also is outlined in his healthcare power of estate attorney to withdraw all life-sustaining measures -But she wants to give him a chance, however if patient has an acute event she would consider making him comfort care sooner -Advised of the risks and benefits, voices any, all questions answered, agreed to proceed -I have changed patient's CODE STATUS according to his wishes, to DNR/DNI, avoiding aggressive interventions Vitals/I&O/Wt Last Vital Signs Temp 96.3 F L 07/12/20 08:00 Pulse 74 07/12/20 11:00 Resp 13 07/12/20 11:00 BP 122/72 07/12/20 11:00 Pulse Ox 98 07/12/20 11:00 07/11/20 07/12/20 07/12/20 22:59 06:59 14:59 Intake Total 649.650 / 1280.825 466.100 / 1746.925 294.225 / 294.225 Output Total 800 / 800 350 / 1150 350 / 350 Balance -150.350 / 480.825 116.100 / 596.925 -55.775 / -55.775 Physical Exam Const: EXAM LIMITATIONS: altered mental status GENERAL APPEARANCE: ill appearing and frail appearing ORIENTATION/CONSCIOUSNESS: Yes patient obtunded; not awake, not oriented to person, not oriented to place and not oriented to time Eye: OTHER: Minimally reactive to light Chest: COMMONS NORMALS: normal inspection of the chest Resp: EFFORT & INSPECTION: Yes tachypneic and Yes retractions (Slight retractions) AUSCULTATION: crackles Cardio: COMMON NORMALS: regular rate, S1 normal heart sound present and S2 normal heart sound present RATE: regular rate RHYTHM: abnormal rhythm HEART SOUNDS: S1 normal heart sound present and S2 normal heart sound present GI: COMMON NORMALS: Normal to inspection, nondistended, normoactive bowel sounds present, Soft to palpation, non-tender and No hepatosplenomegaly present PALPATION: Yes Soft to palpation and Yes No hepatosplenomegaly present Extremity: COMMON NORMALS: capillary refill normal and no pedal edema Neuro: SENSORIUM/ORIENTATION: No oriented to person, No oriented to place and No oriented to time OTHER: Does not follow neurologic testing Urinary Catheter Management^: Landon: Cath Placed During This Visit: yes Reason for Continuing Indwelling Catheter: Accurate Measurement of Urinary Output in Critically Ill Patients Urinary Catheter Date of Insertion: 07/10/20 Urinary Catheter Time of Insertion: 00:20 Data : 07/12/20 04:24 07/12/20 04:24 Micro: Microbiology 07/10/20 02:00 Legionella Urinary Antigen - Final Urine Catheterized Urine Culture - Final Escherichia coli 07/09/20 20:16 Blood Culture - Preliminary Blood Escherichia coli 07/09/20 20:00 Blood Culture - Preliminary Blood Escherichia coli 07/11/20 12:45 MRSA Culture - Final Nose A&P Assessment and plan (1) Septic shock: -Secondary to pneumonia, aspiration pneumonitis, obstructive pyelonephritis -With multiorgan failure -Acute renal failure -Acute liver failure -Cardiomyopathy, EF 25 to 30%, with multiple wall motion abnormalities -Acute hypoxic respiratory failure -Acute encephalopathy -Evidence of DIC -Has had episodes of nonsustained V. tach -Repeat CT scan of the abdomen pelvis shows improved left hydronephrosis, migrated 4 mm left renal calculi in the left renal pelvis, left ureter decompressed -He is a groundglass infiltrates in the left greater than right upper lobes -WBC 18.5, platelet count 64, afebrile overnight, on minimal dobutamine support, Plan: -Continue ICU monitoring -I did discuss obstructive component with Dr. Bird, it seems as if initially patient had obstructive pyelonephritis, however the stone has clearly moved into the bladder, and hydronephrosis has resolved, clinically he is out of the septic shock, however continues to have acute renal failure. Certainly Dr. Bird says that he could entertain the idea of placing a stent, however it would likely not provide any benefit at this point. I also discussed this with patient's , and as per his health care directives, he would not want to have surgery if the likelihood of him having a meaningful recovery is fairly unlikely, declined for now -Blood cultures, urine cultures positive for E. coli, repeat blood cultures tomorrow morning currently on aztreonam, cefepime -Patient continues to have minimal response to Lasix therapy, decreased urine output, will another 40 mg IV Lasix this evening, patient does not want dialysis if he goes into acute renal failure -Currently on minimal dobutamine, try to wean off as tolerated, maintain MAP greater than 75 -Currently on minimal amiodarone for A. fib, will wean off, start Cardizem 60 mg every 6 hours -Currently nasogastric tube in place, according to patient's healthcare directive he does not want to have a NG tube placed for life-sustaining measures such as feedings or water, however we are giving medications to this as patient's unable to swallow at this point, I discussed this with patient's she agrees that we can keep it in place as long as that we do not feed patient through it, and I also feel that this is in line with his health care directives, but will work diligently to remove as soon as possible -Continue hydrocortisone stress dose -Continue famotidine -Heparin for DVT prophylaxis -Poor functional status -Status is critical, prognosis is poor - updated, at bedside -Patient is DNR/DNI, family and patient would like to avoid aggressive interventions if the likelihood of meaningful recovery is very unlikely Status: Acute (2) Acute encephalopathy: Continue treatment of underlying conditions with complicated UTI, sepsis, septic shock acute respiratory failure, pneumonia. History of hemorrhagic CVA. Had some twitching, will hold off on Keppra CT head without acute pathology. Repeat CT of the head did not show no new bleed Status: Acute (3) PHIL (acute kidney injury): Creatinine with minute improvement down to 2.5. Monitor urine output. Maintain blood pressures. Status: Acute (4) UTI (urinary tract infection): Appears to have transient obstructive uropathy, pyelonephritis. Has passed stone and urinary bladder Continue treatment for nonobstructive pyelonephritis, severe sepsis, septic shock. Continue IV antibiotics. Follow-up cultures. Status: Acute (5) Community acquired pneumonia: Negative urine bacterial antigens. A component of aspiration pneumonia, aspiration pneumonitis at this time unable to obtain sputum cultures. Continue cefepime, aztreonam. MRSA nares negative Status: Acute (6) Vomiting: Without recurrence. Possibly related to urolithiasis, pyelonephritis, sepsis Famotidine added as above. Negative rapid Covid. Status: Acute (7) Acute respiratory failure with hypoxia: Status: Acute (8) Dehydration: Resolved. Status: Acute (9) Troponin level elevated: History of hemorrhagic CVA. Unknown history of cardiovascular disease otherwise. Troponin not rising to a peak. Suspect this is demand ischemia secondary to septic shock, general medical condition, in the setting of PHIL. Noted decrease in EF, but currently warm, extremities perfused. No sign of cardiogenic shock. Repeat limited study once hypotension resolves. Would benefit from additional risk stratification once condition stabilizes. Status: Acute (10) Shock liver: Status: Acute (11) Thrombocytopenia: Secondary to sepsis Status: Acute Additional A&P Information DM2: SSI, levemir [id number] Sinus tachycardia DVT prophylaxis Heparin Landon catheter placement,: 07/10/2020 Central line placement: 07/09/2020 Attestations Medical Necessity Statement*: Patient requires hospitalization, for sepsis, multiorgan failure, obstructive pyelonephritis, pneumonia, critical care time spent over 60 minutes Coding Level of Care Code Acute [employer] for [facility] Fwd Diagnoses Septic shock A41.9; R65.21 Acute encephalopathy G93.40 PHIL (acute kidney injury) N17.9 UTI (urinary tract infection) N39.0 Community acquired pneumonia J18.9 Vomiting R11.10 Acute respiratory failure with hypoxia J96.01 Dehydration E86.0 Troponin level elevated R77.8 Shock liver K72.00 Thrombocytopenia D69.6
--- NOTE | 2020-07-12 15:42 | PC.SOCIAL ---
*IMM* Patient unresponsive, Will be here past 2 days, he is likely going to be comfort care. It is still initialled in the chart.
--- NOTE | 2020-07-12 15:44 | PC.CHAP ---
Pastoral Care Encounter/Spiritual Assessment Type of Contact [] Declined direct support specialist visit [] Patient/Family/Request visit [] Outpatient visit [] Follow-up visit [] Physician referral [] Code/Alert [] Routine visit [] Staff referral [] Actively dying [] Patient sleeping [] Family support [] [] Out of room [] Palliative care [] [] Receiving care in room [] Pre-surgical visit [] Trauma [] Long length of stay [] ICU visit [] Other: Relational/Emotional Strength [] Patient feels connected with others/family/visitors/staff [] Distress [] Loneliness/isolation [] Abandonment Spirituality of Patient [] Person of Emma [] Attends Yarsanism of their Emma [] Believes in Prayer [] Reads Bible or Jain materials [] There are Spiritual issues to be addressed Therapy Director Interventions [] Prayer [] Active listening [] Non-anxious presence [] Spiritual/emotional support [] Crisis/trauma care [] Spiritual counseling [] Bereavement support [] Provided bereavement packet [] Provided Bible/devotional materials [] Provided toy/stuffed animal, coloring book to patient or family member [] Provided Communion [] Anointing/[place] [] Salvation [] Completed spiritual assessment [] Other: Impact on Illness or Injury [] Angry [] Fearful [] Anxious [] Often cries [] Exhaustion [] Unable to work [] Unable to attend nondenominational [] Unable to walk/stand [] Unable to read [] Unable to drive [] Unable to eat/drink [] Unable to sleep [] Unable to be with family [x] Patient intubated [] Other: Summary Time spent with patient
[2020-07-12 17:30] LABS: Glucose Point of Care 223 mg/dL (70-110)
--- NOTE | 2020-07-12 19:39 | PC.NURSE ---
Received bed side shift report from off going nurse. Pt's plan of care reviewed. Pt resting in bed. Respirations are even and unlabored. No s/sx of distress noted. Pt appears to be resting comfortably at this time. Pt responds to voice and touch stimuli. Pt is able to follow me with is eyes. Off going nurse stated that the is requesting the patient to be a chem code and does not want any further measures than what we are doing now for him. Pt is currently off all pressures with a BP 110s/60s. Bed in lowest and locked position, call light within reach, x's 3 rails up. Bed alarm on. Will continue to monitor pt.
--- NOTE | 2020-07-12 20:30 | PC.NURSE ---
Pt's HR is ranging between 50 and 60bpm. Pt is scheduled to have cardizem 60mg PO at 2100. Notified hospitalist. Ordered to hold medication at this time.
[2020-07-12] MEDS: ipratropium-albuterol 3 mL Neb INHALATION (20:47)
[2020-07-13] VITALS (290 sets, daily range): BP systolic 109–171; BP diastolic 52–93; PULSE 53–68; RESP 1–22; TEMP 36.2–36.6; O2SAT 86–100
[2020-07-13] MEDS: aztreonam 1,000 MG in sodium chloride 0.9% (plus) 50 ML 100 MG IV ×2 (02:07→13:53)
[2020-07-13 02:29] LABS: Hematocrit 30.4 % (42.0-52.0); Hemoglobin 10.1 g/dL (11.7-16.6); Mean Corpuscular HGB Conc 33.2 g/dL (30.0-36.0); Mean Corpuscular Hemoglobin 30.4 pg (28.0-34.0); Mean Corpuscular Volume 91.6 fL (80-94); Platelet Count 53 10^3/cmm (130-400); Red Blood Count 3.32 10^6/uL (4.1-5.3); Red Cell Distribution Width 14.1 % (12.1-15.1)
[2020-07-13 02:56] LABS: Albumin Level 2.8 g/dL (3.5-5.2); Alkaline Phosphatase 72 IU/L (40-130); Anion Gap 18.2 (5-19); Calcium 8.3 mg/dL (8.5-10.5); Carbon Dioxide 18 mmol/L (22-29); Chloride 109 mmol/L (98-107); Globulin 2.2 g/dL (1.3-4.6); Glomerular Filtration Rate 17.5 mL/min (90-130); Glucose 163 mg/dL (65-115); Osmolality Calculated 326 mOsm/kg (285-295); Potassium 3.2 mmol/L (3.5-5.1); Sodium 142 mmol/L (136-145); Total Bilirubin 0.6 mg/dL (0.15-1.2)
[2020-07-13 02:58] LABS: Absolute Neutrophil 9.7 10^3/cmm (1.4-6.5); Band Neutrophils Absolute 1.7 10^3/cmm (0.0-1.2); C Reactive Protein 117.4 mg/L (0.0-4.9); Eosinophils 0 %; Giant Platelets 1+; Lymphocytes 9 %; Monocytes Absolute 0.3 10^3/cmm (0.1-0.6); Phosphorus 3.7 mg/dL (2.5-4.5); Platelet Estimate Decreased (Normal); Segmented Neutrophils 73 %; Total Cells Counted 100 (0-100)
[2020-07-13 03:06] LABS: NT Pro B Type Natriuretic Pept 14731 pg/mL (0-125); Procalcitonin 46.62 ng/mL (0-0.5)
[2020-07-13 03:09] LABS: Alanine Aminotransferase 3027 U/L (0-41)
[2020-07-13 03:12] LABS: Aspartate Amino Transferase 988 U/L (0-40)
[2020-07-13 03:13] LABS: Blood Urea Nitrogen 91 mg/dL (8-23)
[2020-07-13 03:16] LABS: Creatine Phosphokinase 192 U/L (39-308)
[2020-07-13 03:27] LABS: Vancomycin Trough 14.1 ug/mL (10-15)
[2020-07-13] MEDS: hydrocortisone 100 mg/2 mL SDV IVP ×4 (03:45→21:22)
[2020-07-13 04:49] LABS: ABG PH Result 7.43 (7.35-7.45); Arterial Blood Gas Hematocrit 35.5 % (42-52); Blood Gas Allen Test Pos; Blood Gas Operator Identificat JB; Blood Gas Sample Site Radial, right; Blood Gas Sample Type Arterial; Oxygen Device NC; PO2 ABG 93.5 mmHg (80.0-100.0)
--- NOTE | 2020-07-13 07:00 | XRR_ITS ---
PROCEDURE INFORMATION: Exam: XR Chest Exam date and time: 07/13/2020 5:02 AM Age: 70 years old Clinical indication: Condition or disease; Lung condition and disease; Pneumonia; Additional info: SOB TECHNIQUE: Imaging protocol: XR of the chest Views: 1 view. COMPARISON: CT chest abd pel wo con 07/12/2020 9:36 AM FINDINGS: Tubes, catheters and devices: A nasogastric tube extends down to the stomach. The right internal jugular vein catheter projects in the SVC. Lungs: There is prominent consolidation of the left lung and mildly of the right. This has not significantly changed allowing for differences in exposure. Pleural spaces: Unremarkable. No pleural effusion. No pneumothorax. Heart/Mediastinum: The heart is normal for the AP projection. Bones/joints: Unremarkable. XR/XR chest 1V portable [id number] IMPRESSION: Bilateral pulmonary infiltrates especially in the left lung. No significant change.
[2020-07-13 07:53] LABS: INR 1.39 (0.8-1.2); Partial Thromboplastin Time 35.6 SECONDS (23.9-36.7)
[2020-07-13 07:54] LABS: Fibrinogen 446 mg/dL (174-498)
[2020-07-13 07:56] LABS: D Dimer 3.67 ug/mIFEU (0-0.59)
[2020-07-13] MEDS: lidocaine 1% 5 ML in potassium chloride premix 100 ML 25 ML IV (08:55)
[2020-07-13] MEDS: FUROsemide 10 mg/mL SDV 4mL 40 MG IVP (08:55)
[2020-07-13 09:10] LABS: Glucose Point of Care 172 mg/dL (70-110)
[2020-07-13 09:10] LABS: Glucose Point of Care 170 mg/dL (70-110)
[2020-07-13] MEDS: levothyroxine 100 mcg Tablet PO (09:28)
[2020-07-13] MEDS: famotidine 20 mg/2 mL INJ IVP ×2 (09:33→21:23)
[2020-07-13] MEDS: dilTIAZem 60 mg Tablet 30 MG PO ×3 (10:25→21:22)
[2020-07-13 11:56] LABS: Glucose Point of Care 179 mg/dL (70-110)
--- NOTE | 2020-07-13 14:23 | P.PN_ITS ---
Subjective Subjective: Interval history: Overnight no events, remains afebrile, hemodynamically stable, normal sinus rhythm, his dobutamine has been off, his amiodarone has been off, his urine output has improved to 1300 cc with Lasix therapy, this morning he has a bit more color, is on 2 L, he is a bit more awake, opens his eyes, but does not respond to commands, does awaken a little bit to sternal rub Vitals/I&O/Wt Last Vital Signs Temp 97.3 F L 07/13/20 12:00 Pulse 64 07/13/20 13:35 Resp 15 07/13/20 13:35 BP 141/69 07/13/20 13:35 Pulse Ox 96 07/13/20 13:35 07/12/20 07/13/20 07/13/20 22:59 06:59 14:59 Intake Total 50 / 394.225 Output Total 250 / 600 1000 / 1600 700 / 700 Balance -250 / -255.775 -950 / -1205.775 -700 / -700 Physical Exam Narrative: EXAM NARRATIVE: Minimal responsive to sternal rub Const: EXAM LIMITATIONS: altered mental status GENERAL APPEARANCE: ill appearing and frail appearing ORIENTATION/CONSCIOUSNESS: Yes patient obtunded; not awake, not oriented to person, not oriented to place and not oriented to time Eye: OTHER: Minimally reactive to light Chest: COMMONS NORMALS: normal inspection of the chest Resp: COMMON NORMALS: normal respiratory effort and No retractions AUSCULTATION: wheezes Cardio: COMMON NORMALS: regular rate, S1 normal heart sound present and S2 normal heart sound present RATE: regular rate RHYTHM: abnormal rhythm HEART SOUNDS: S1 normal heart sound present and S2 normal heart sound present GI: COMMON NORMALS: Normal to inspection, nondistended, normoactive bowel sounds present, Soft to palpation, non-tender and No hepatosplenomegaly present PALPATION: Yes Soft to palpation and Yes No hepatosplenomegaly present Extremity: COMMON NORMALS: capillary refill normal and no pedal edema Neuro: SENSORIUM/ORIENTATION: No oriented to person, No oriented to place and No oriented to time OTHER: Does not follow neurologic testing Urinary Catheter Management^: Landon: Cath Placed During This Visit: yes Reason for Continuing Indwelling Catheter: Accurate Measurement of Urinary Output in Critically Ill Patients Urinary Catheter Date of Insertion: 04/03/21 Urinary Catheter Time of Insertion: 00:20 Data : 07/13/20 02:00 07/13/20 02:00 Micro: Microbiology 07/09/20 20:16 Blood Culture - Preliminary Blood Escherichia coli 07/09/20 20:00 Blood Culture - Preliminary Blood Escherichia coli 07/13/20 02:00 Blood Culture - Preliminary Blood SPECIMEN COLLECTED 07/13/20 02:00 Blood Culture - Preliminary Blood SPECIMEN COLLECTED 07/10/20 02:00 Legionella Urinary Antigen - Final Urine Catheterized Urine Culture - Final Escherichia coli A&P Assessment and plan (1) Septic shock: -Secondary to pneumonia, aspiration pneumonitis, obstructive pyelonephritis -With multiorgan failure -Acute renal failure -Acute liver failure -Cardiomyopathy, EF 25 to 30%, with multiple wall motion abnormalities -Acute hypoxic respiratory failure -Acute encephalopathy -Evidence of DIC -Has had episodes of nonsustained V. tach -Repeat CT scan of the abdomen pelvis shows improved left hydronephrosis, migrated 4 mm left renal calculi in the left renal pelvis, left ureter decompressed -He is a groundglass infiltrates in the left greater than right upper lobes -WBC 11.0, platelet count 53, afebrile overnight, off pressors Plan: -Continue ICU monitoring -I did discuss obstructive component with Dr. Bird, it seems as if initially patient had obstructive pyelonephritis, however the stone has clearly moved into the bladder, and hydronephrosis has resolved, clinically he is out of the septic shock, however continues to have acute renal failure. Certainly Dr. Bird says that he could entertain the idea of placing a stent, however it would likely not provide any benefit at this point. I also discussed this with patient's , and as per his health care directives, he would not want to have surgery if the likelihood of him having a meaningful recovery is fairly unlikely, declined for now -Blood cultures, urine cultures positive for E. coli, repeat blood cultures tomorrow morning currently on aztreonam, cefepime -Creatinine 3.5, BUN 91, improving urine output with Lasix, approximately 1300 cc, will give another 40 mg Lasix as BNP is elevated and evidence of pulmonary edema -Currently off dobutamine, maintain MAP greater than 75 -Currently off amiodarone, normal sinus rhythm continue Cardizem 30 every 6 hours -Currently nasogastric tube in place, according to patient's healthcare directive he does not want to have a NG tube placed for life-sustaining measures such as feedings or water, however we are giving medications to this as patient's unable to swallow at this point, I discussed this with patient's she agrees that we can keep it in place as long as that we do not feed patient through it, and I also feel that this is in line with his health care directives, but will work diligently to remove as soon as possible -Continue hydrocortisone stress dose -Continue famotidine -Heparin for DVT prophylaxis -Poor functional status -Status is stable, prognosis is poor - updated, at bedside -Patient is DNR/DNI, family and patient would like to avoid aggressive interventions if the likelihood of meaningful recovery is very unlikely Status: Acute (2) Acute encephalopathy: Continue treatment of underlying conditions with complicated UTI, sepsis, septic shock acute respiratory failure, pneumonia. History of hemorrhagic CVA. Had some twitching, will hold off on Keppra CT head without acute pathology. Repeat CT of the head did not show no new bleed Status: Acute (3) PHIL (acute kidney injury): Creatinine with minute improvement down to 2.5. Monitor urine output. Maintain blood pressures. Status: Acute (4) UTI (urinary tract infection): Appears to have transient obstructive uropathy, pyelonephritis. Has passed stone and urinary bladder Continue treatment for nonobstructive pyelonephritis, severe sepsis, septic shock. Continue IV antibiotics. Follow-up cultures. Status: Acute (5) Community acquired pneumonia: Negative urine bacterial antigens. A component of aspiration pneumonia, aspiration pneumonitis at this time unable to obtain sputum cultures. Continue cefepime, aztreonam. MRSA nares negative Status: Acute (6) Vomiting: Without recurrence. Possibly related to urolithiasis, pyelonephritis, sepsis Famotidine added as above. Negative rapid Covid. Status: Acute (7) Acute respiratory failure with hypoxia: Status: Acute (8) Dehydration: Resolved. Status: Acute (9) Troponin level elevated: History of hemorrhagic CVA. Unknown history of cardiovascular disease otherwise. Troponin not rising to a peak. Suspect this is demand ischemia secondary to septic shock, general medical condition, in the setting of PHIL. Noted decrease in EF, but currently warm, extremities perfused. No sign of cardiogenic shock. Repeat limited study once hypotension resolves. Would benefit from additional risk stratification once condition stabilizes. Status: Acute (10) Shock liver: Status: Acute (11) Thrombocytopenia: Secondary to sepsis Status: Acute Additional A&P Information DM2: SSI, levemir [id number] Sinus tachycardia DVT prophylaxis Heparin Landon catheter placement,: 07/10/2020 Central line placement: 07/09/2020 Plan for today continue antibiotic therapy, continue to monitor clinically, will do a trial of Lasix therapy, continue to monitor his mentation Attestations Medical Necessity Statement*: Patient requires hospitalization for pneumonia, pyelonephritis, with sepsis, multiorgan failure, bone marrow suppression Coding Level of Care Code Acute 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
[2020-07-13 17:08] LABS: Glucose Point of Care 197 mg/dL (70-110)
[2020-07-13 17:22] LABS: Glucose Point of Care 180 mg/dL (70-110)
[2020-07-14] VITALS (85 sets, daily range): BP systolic 118–157; BP diastolic 55–84; PULSE 54–102; RESP 10–21; TEMP 36.4–37.1; O2SAT 78–100
[2020-07-14] MEDS: aztreonam 1,000 MG in sodium chloride 0.9% (plus) 50 ML 100 MG IV (01:09)
[2020-07-14] MEDS: cefepime 1,000 MG in sodium chloride 0.9% (plus) 50 ML 100 MG IV (02:12)
[2020-07-14] MEDS: hydrocortisone 100 mg/2 mL SDV IVP ×2 (02:19→08:24)
[2020-07-14 03:55] LABS: Basophils # 0.1 10^3/uL (0.0-0.1); Basophils % 0.8 %; Hematocrit 30.3 % (42.0-52.0); Hemoglobin 10.5 g/dL (11.7-16.6); Lymphocytes # 0.4 10^3/uL (0.8-4.8); Lymphocytes % 4.1 %; Mean Corpuscular HGB Conc 34.7 g/dL (30.0-36.0); Mean Corpuscular Hemoglobin 30.2 pg (28.0-34.0); Mean Corpuscular Volume 87.1 fL (80-94); Mean Platelet Volume 12.1 fL (7.4-10.4); Monocytes # 0.9 10^3/uL (0.2-0.9); Monocytes % 8.7 %; Neutrophils # 8.15 10^3/uL (1.8-7.7); Neutrophils % 81.8 %; Nucleated Red Blood Cells % 0.4 %; Platelet Count 59 10^3/cmm (130-400); Red Blood Count 3.48 10^6/uL (4.1-5.3); Red Cell Distribution Width 13.8 % (12.1-15.1)
[2020-07-14 04:18] LABS: Alkaline Phosphatase 79 IU/L (40-130); Anion Gap 16.7 (5-19); Aspartate Amino Transferase 424 U/L (0-40); C Reactive Protein 70.8 mg/L (0.0-4.9); Calcium 8.6 mg/dL (8.5-10.5); Carbon Dioxide 22 mmol/L (22-29); Chloride 108 mmol/L (98-107); Globulin 2.2 g/dL (1.3-4.6); Glomerular Filtration Rate 17.5 mL/min (90-130); Glucose 198 mg/dL (65-115); Osmolality Calculated 336 mOsm/kg (285-295); Sodium 144 mmol/L (136-145); Total Bilirubin 0.7 mg/dL (0.15-1.2); Total Protein 5.2 g/dL (6.6-8.7)
[2020-07-14 04:18] LABS: ABG PCO2 29.8 mmHg (35-45); ABG PH Result 7.46 (7.35-7.45); Arterial Blood Gas Hematocrit 37.5 % (42-52); Base Excess ABG -1.7 mmol/L (-2.0-2.0); Blood Gas Allen Test Pos; Blood Gas Sample Type Arterial; HCO3 ABG 21.2 mmol/L (22-26); PO2 ABG 81.8 mmHg (80.0-100.0)
[2020-07-14 04:19] LABS: Blood Gas Operator Identificat HARKR; Blood Gas Sample Site Radial, left; Oxygen Device ROOM AIR
[2020-07-14 04:22] LABS: NT Pro B Type Natriuretic Pept 8896 pg/mL (0-125); Procalcitonin 20.53 ng/mL (0-0.5)
[2020-07-14 04:25] LABS: Lactate (Lactic Acid level) 1.3 mmol/L (0.5-2.2)
[2020-07-14 04:28] LABS: INR 1.35 (0.8-1.2)
[2020-07-14 04:29] LABS: Fibrinogen 378 mg/dL (174-498); Partial Thromboplastin Time 30.2 SECONDS (23.9-36.7)
[2020-07-14] MEDS: dilTIAZem 60 mg Tablet 30 MG PO (04:31)
[2020-07-14 04:32] LABS: Alanine Aminotransferase 2306 U/L (0-41)
[2020-07-14 04:35] LABS: Blood Urea Nitrogen 104 mg/dL (8-23); Potassium 2.7 mmol/L (3.5-5.1)
[2020-07-14 04:36] LABS: Creatine Phosphokinase 61 U/L (39-308)
[2020-07-14 04:39] LABS: D Dimer 6.28 ug/mIFEU (0-0.59)
--- NOTE | 2020-07-14 04:46 | PC.NURSE ---
Lab called with critical labs. Potassium 2.7 and a BUN of 103. Hospitalist notified.
[2020-07-14] MEDS: lidocaine 1% 5 ML in potassium chloride premix 100 ML 25 ML IV ×2 (05:00→08:23)
--- NOTE | 2020-07-14 07:00 | XR_ITS ---
WS: [id number] Portable AP semiupright chest, 07/14/2020 Clinical Data: sob Comparison: Portable chest, 07/13/2020 Findings: Bilateral patchy opacities have not changed. The nasogastric tube and right internal jugula r venous catheter remain the same. The heart is normal. No pneumothorax is seen. Monitor leads are on the chest wall. There is an old healed fracture of the proximal right humerus. XR/XR chest 1V portable [id number] Impression: No change in bilateral pulmonary opacities.
[2020-07-14 07:21] LABS: Glucose Point of Care 180 mg/dL (70-110)
[2020-07-14 07:21] LABS: Glucose Point of Care 235 mg/dL (70-110)
[2020-07-14] MEDS: levothyroxine 100 mcg Tablet PO (08:22)
[2020-07-14] MEDS: famotidine 20 mg/2 mL INJ IVP (08:23)
[2020-07-14] MEDS: dilTIAZem 30 mg Tablet PO (09:39)
--- NOTE | 2020-07-14 10:23 | PC.CHAP ---
Pastoral Care Encounter/Spiritual Assessment Type of Contact [] Declined automation design engineer visit [] Patient/Family/Request visit [] Outpatient visit [] Follow-up visit [] Physician referral [] Code/Alert [x] Routine visit [] Staff referral [] Actively dying [] Patient sleeping [] Family support [] [] Out of room [] Palliative care [] [] Receiving care in room [] Pre-surgical visit [] Trauma [] Long length of stay [x] ICU visit [] Other: Relational/Emotional Strength [] Patient feels connected with others/family/visitors/staff [] Distress [] Loneliness/isolation [] Abandonment Spirituality of Patient [] Person of Emma [] Attends Nondenominational of their Emma [] Believes in Prayer [] Reads Bible or Adventist materials [] There are Spiritual issues to be addressed Roll Slicing Machine Tender Interventions [x] Prayer [] Active listening [] Non-anxious presence [] Spiritual/emotional support [] Crisis/trauma care [] Spiritual counseling [] Bereavement support [] Provided bereavement packet [] Provided Bible/devotional materials [] Provided toy/stuffed animal, coloring book to patient or family member [] Provided Communion [] Anointing/[place] [] Salvation [x] Completed spiritual assessment [] Other: Impact on Illness or Injury [] Angry [] Fearful [] Anxious [] Often cries [] Exhaustion [] Unable to work [] Unable to attend shinto [] Unable to walk/stand [] Unable to read [] Unable to drive [] Unable to eat/drink [] Unable to sleep [] Unable to be with family [] Patient intubated [] Other: Summary Time spent with patient
[2020-07-14] MEDS: morphine 4 mg/mL SDV 1 mL IVP (13:51)
--- NOTE | 2020-07-14 14:00 | PC.NURSE ---
Patient taken to med surg by med surg nurse. Patient given morphine prior to transport. Patient stable at time of transfer.
--- NOTE | 2020-07-14 14:40 | PC.SOCIAL ---
*IMM NOT GIVEN* Unable to give pt IMM. Unable to reach spouse. Left copy of page 2 of IMM at bedside. Initialed, dated, timed and placed in chart.
--- NOTE | 2020-07-14 14:49 | PC.NURSE ---
1430 NG tube removed at this time. Tolerated well.
--- NOTE | 2020-07-14 16:14 | P.PN_ITS ---
Subjective Subjective: Interval history: Patient was examined this morning, he does arouse, but does not follow commands, pupils are equal round reactive to light, does not withdraw from pain at times, at other times he does, not vocal I had a discussion with patient's and 2 daughters at bedside today we readdressed patient's clinical status and goals of care -I advised family members that currently patient's out of septic shock -His liver is slowly recovering -His renal function slowly recovering -He is being treated for pneumonia and pyelonephritis -However it has been over 4 days since his admission, and he has had a slow clinical progress -His mentation remains a challenge, barely arousable, does not follow commands -It has been over 4 days now, patient has not had adequate nutrition, according to his healthcare directives he does not want any artificial means of feeding through NG tube or the vein, currently he is in no condition to take food by mouth, due to high risk of aspiration and choking, given his continued confusion and nonresponsiveness at times -Family members at tell me that he had a poor quality of life before all this happened, get then his subdural hematoma and is hemorrhagic CVA, he is nonverbal at times at baseline, can say yes or no, is dependent on family for activities of daily living -I went over patient's health care directives, with family members, readdressing patient's words that if he does not have a reasonable quality of life, and reas onable chance of recovery, to stop life-sustaining measures -I went over options available including continuing medical interventions, and waiting, or pursuing comfort care -Patient's family advised me that they had a family meeting last night, and they have decided to pursue comfort care -After discussion of the risks and benefits of comfort care, family voiced understanding, all questions answered, agreed to proceed with comfort care Vitals/I&O/Wt Last Vital Signs Temp 98.7 F 07/14/20 14:00 Pulse 99 07/14/20 14:00 Resp 18 07/14/20 14:00 BP 129/72 07/14/20 14:00 Pulse Ox 78 L 07/14/20 14:00 07/14/20 07/14/20 07/14/20 06:59 14:59 22:59 Intake Total 154.316 / 309.316 91.667 / 91.667 Output Total 1650 / 3250 Balance -1495.684 / -2940.684 91.667 / .667 Physical Exam Narrative: EXAM NARRATIVE: Minimal responsive to sternal rub Const: EXAM LIMITATIONS: altered mental status GENERAL APPEARANCE: ill appearing and frail appearing ORIENTATION/CONSCIOUSNESS: Yes patient obtunded; not awake, not oriented to person, not oriented to place and not oriented to time Eye: COMMON NORMALS: Equal, round and reactive pupils present PUPIL: Yes Equal, round and reactive pupils present Chest: COMMONS NORMALS: normal inspection of the chest Resp: COMMON NORMALS: normal respiratory effort Cardio: COMMON NORMALS: regular rate, S1 normal heart sound present and S2 normal heart sound present RATE: regular rate RHYTHM: abnormal rhythm HEART SOUNDS: S1 normal heart sound present and S2 normal heart sound present GI: COMMON NORMALS: Normal to inspection, nondistended, normoactive bowel sounds present, Soft to palpation, non-tender and No hepatosplenomegaly present PALPATION: Yes Soft to palpation and Yes No hepatosplenomegaly present Extremity: COMMON NORMALS: no pedal edema Neuro: SENSORIUM/ORIENTATION: No oriented to person, No oriented to place and No oriented to time OTHER: Does not follow neurologic testing Urinary Catheter Management^: Landon: Cath Placed During This Visit: yes Reason for Continuing Indwelling Catheter: Accurate Measurement of Urinary Output in Critically Ill Patients Urinary Catheter Date of Insertion: 07/10/20 Urinary Catheter Time of Insertion: 00:20 Data : 07/14/20 03:40 07/14/20 03:40 Micro: Microbiology 07/09/20 20:16 Blood Culture - Final Blood Escherichia coli 07/09/20 20:00 Blood Culture - Final Blood Escherichia coli 07/13/20 02:00 Blood Culture - Preliminary Blood NEGATIVE TO DATE 07/13/20 02:00 Blood Culture - Preliminary Blood NEGATIVE TO DATE A&P Assessment and plan (1) Septic shock: -Will stop all life-sustaining measures, NG tube, central line, stop medications -Start comfort care -Morphine, Ativan, sublingual atropine, oxygen for comfort, Landon catheter for comfort, we will moved patient to a private room -Secondary to pneumonia, aspiration pneumonitis, obstructive pyelonephritis -With multiorgan failure -Acute renal failure -Acute liver failure -Cardiomyopathy, EF 25 to 30%, with multiple wall motion abnormalities -Acute hypoxic respiratory failure -Acute encephalopathy -Evidence of DIC -Has had episodes of nonsustained V. tach -Repeat CT scan of the abdomen pelvis shows improved left hydronephrosis, migrated 4 mm left renal calculi in the left renal pelvis, left ureter d ecompressed -He is a groundglass infiltrates in the left greater than right upper lobes -WBC 11.0, platelet count 53, afebrile overnight, off pressors Plan: -Continue ICU monitoring -I did discuss obstructive component with Dr. Bird, it seems as if initially patient had obstructive pyelonephritis, however the stone has clearly moved into the bladder, and hydronephrosis has resolved, clinically he is out of the septic shock, however continues to have acute renal failure. Certainly Dr. Bird says that he could entertain the idea of placing a stent, however it would likely not provide any benefit at this point. I also discussed this with patient's , and as per his health care directives, he would not want to have surgery if the likelihood of him having a meaningful recovery is fairly unlikely, declined for now -Blood cultures, urine cultures positive for E. coli, repeat blood cultures tomorrow morning currently on aztreonam, cefepime -Creatinine 3.5, BUN 91, improving urine output with Lasix, approximately 1300 cc, will give another 40 mg Lasix as BNP is elevated and evidence of pulmonary edema -Currently off dobutamine, maintain MAP greater than 75 -Currently off amiodarone, normal sinus rhythm continue Cardizem 30 every 6 hours -Currently nasogastric tube in place, according to patient's healthcare directive he does not want to have a NG tube placed for life-sustaining measures such as feedings or water, however we are giving medications to this as patient's unable to swallow at this point, I discussed this with patient's she agrees that we can keep it in place as long as that we do not feed patient through it, and I also feel that this is in line with his health care directives, but will work diligently to remove as soon as possible -Continue hydrocortisone stress dose -Continue famotidine -Heparin for DVT prophylaxis -Poor functional status -Status is stable, prognosis is poor - updated, at bedside -Patient is DNR/DNI, family and patient would like to avoid aggressive interventions if the likelihood of meaningful recovery is very unlikely Status: Acute (2) Acute encephalopathy: Continue treatment of underlying conditions with complicated UTI, sepsis, septic shock acute respiratory failure, pneumonia. History of hemorrhagic CVA. Had some twitching, will hold off on Keppra CT head without acute pathology. Repeat CT of the head did not show no new bl eed Status: Acute (3) PHIL (acute kidney injury): Creatinine with minute improvement down to 2.5. Monitor urine output. Maintain blood pressures. Status: Acute (4) UTI (urinary tract infection): Appears to have transient obstructive uropathy, pyelonephritis. Has passed stone and urinary bladder Continue treatment for nonobstructive pyelonephritis, severe sepsis, septic shock. Continue IV antibiotics. Follow-up cultures. Status: Acute (5) Community acquired pneumonia: Negative urine bacterial antigens. A component of aspiration pneumonia, aspiration pneumonitis at this time unable to obtain sputum cultures. Continue cefepime, aztreonam. MRSA nares negative Status: Acute (6) Vomiting: Without recurrence. Possibly related to urolithiasis, pyelonephritis, sepsis Famotidine added as above. Negative rapid Covid. Status: Acute (7) Acute respiratory failure with hypoxia: Status: Acute (8) Dehydration: Resolved. Status: Acute (9) Troponin level elevated: History of hemorrhagic CVA. Unknown history of cardiovascular disease otherwise. Troponin not rising to a peak. Suspect this is demand ischemia secondary to septic shock, general medical condition, in the setting of PHIL. Noted decrease in EF, but currently warm, extremities perfused. No sign of cardiogenic shock. Repeat limited study once hypotension resolves. Would benefit from additional risk stratification once condition stabilizes. 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
[2020-07-14 17:19] LABS: Glucose Point of Care 214 mg/dL (70-110)
--- NOTE | 2020-07-14 19:30 | PC.NURSE ---
Report to Kayla PAREDES at this time.
[2020-07-15] VITALS (8 sets, daily range): BP systolic 134–156; BP diastolic 62–92; PULSE 63–95; RESP 16–18; TEMP 36.5–37.1; O2SAT 92–98
[2020-07-15] MEDS: morphine 4 mg/mL SDV 1 mL IVP (09:30)
--- NOTE | 2020-07-15 13:08 | P.PN_ITS ---
Subjective Subjective: Interval history: Patient was examined this morning, he does follow me around the room, is nonverbal, does not follow commands he does have a central line in place, which have asked nursing staff to remove, replace with peripheral IV line Vitals/I&O/Wt Last Vital Signs Temp 98.7 F 07/15/20 11:06 Pulse 67 07/15/20 11:06 Resp 17 07/15/20 11:06 BP 150/73 07/15/20 11:06 Pulse Ox 96 07/15/20 11:06 07/14/20 07/15/20 07/15/20 22:59 06:59 14:59 Intake Total 0 / 91.667 0 / 0 Output Total 1300 / 1300 850 / 2150 Balance -1300 / -1208.333 -850 / -2058.333 0 / 0 Physical Exam Const: COMMON NORMALS: no acute distress EXAM LIMITATIONS: altered mental status ORIENTATION/CONSCIOUSNESS: Yes awake; not oriented to person, not oriented to place and not oriented to time Neck/C-Spine: COMMON NORMALS: no JVD Resp: COMMON NORMALS: normal respiratory effort, No retractions and No use of accessory muscles AUSCULTATION: crackles Cardio: COMMON NORMALS: no JVD, regular rate, regular rhythm, S1 normal heart sound present and S2 normal heart sound present RATE: regular rate RHYTHM: regular rhythm HEART SOUNDS: S1 normal heart sound present and S2 normal heart sound present GI: COMMON NORMALS: Normal to inspection, nondistended, normoactive bowel sounds present and Soft to palpation PALPATION: Yes Soft to palpation Extremity: COMMON NORMALS: no pedal edema Neuro: SENSORIUM/ORIENTATION: No oriented to person, No oriented to place and No oriented to time Urinary Catheter Management^: Landon: Cath Placed During This Visit: yes Reason for Continuing Indwelling Catheter: Hospice/Comfort/Palliative Care Urinary Catheter Date of Insertion: 07/10/20 Urinary Catheter Time of Insertion: 00:20 Data : 07/14/20 03:40 07/14/20 03:40 Micro: Microbiology 07/09/20 20:16 Blood Culture - Final Blood Escherichia coli 07/09/20 20:00 Blood Culture - Final Blood Escherichia coli A&P Assessment and plan (1) Septic shock: -Start comfort care -Morphine, Ativan, sublingual atropine, oxygen for comfort, Landon catheter for comfort, patient in a private room -Secondary to pneumonia, aspiration pneumonitis, obstructive pyelonephritis -With multiorgan failure -Acute renal failure -Acute liver failure -Cardiomyopathy, EF 25 to 30%, with multiple wall motion abnormalities -Acute hypoxic respiratory failure -Acute encephalopathy -Evidence of DIC -Has had episodes of nonsustained V. tach -Repeat CT scan of the abdomen pelvis shows improved left hydronephrosis, migrated 4 mm left renal calculi in the left renal pelvis, left ureter decompressed -He is a groundglass infiltrates in the left greater than right upper lobes -WBC 11.0, platelet count 53, afebrile overnight, off pressors Plan: -Continue ICU monitoring -I did discuss obstructive component with Dr. Bird, it seems as if initially patient had obstructive pyelonephritis, however the stone has clearly moved into the bladder, and hydronephrosis has resolved, clinically he is out of the septic shock, however continues to have acute renal failure. Certainly Dr. Bird says that he could entertain the idea of placing a stent, however it would likely not provide any benefit at this point. I also discussed this with patient's , and as per his health care directives, he would not want to have surgery if the likelihood of him having a meaningful recovery is fairly unlikely, declined for now -Blood cultures, urine cultures positive for E. coli, repeat blood cultures tomorrow morning currently on aztreonam, cefepime -Creatinine 3.5, BUN 91, improving urine output with Lasix, approximately 1300 cc, will give another 40 mg Lasix as BNP is elevated and evidence of pulmonary edema -Currently off dobutamine, maintain MAP greater than 75 -Currently off amiodarone, normal sinus rhythm continue Cardizem 30 every 6 hours -Currently nasogastric tube in place, according to patient's healthcare directive he does not want to have a NG tube placed for life-sustaining measures such as feedings or water, however we are giving medications to this as patient's unable to swallow at this point, I discussed this with patient's she agrees that we can keep it in place as long as that we do not feed patient through it, and I also feel that this is in line with his health care directives, but will work diligently to remove as soon as possible -Continue hydrocortisone stress dose -Continue famotidine -Heparin for DVT prophylaxis -Poor functional status -Status is stable, prognosis is poor - updated, at bedside -Patient is DNR/DNI, family and patient would like to avoid aggressive interventions if the likelihood of meaningful recovery is very unlikely Status: Acute (2) Acute encephalopathy: Continue treatment of underlying conditions with complicated UTI, sepsis, septic shock acute respiratory failure, pneumonia. History of hemorrhagic CVA. Had some twitching, will hold off on Keppra CT head without acute pathology. Repeat CT of the head did not show no new bleed Status: Acute (3) PHIL (acute kidney injury): Creatinine with minute improvement down to 2.5. Monitor urine output. Maintain blood pressures. Status: Acute (4) UTI (urinary tract infection): Appears to have transient obstructive uropathy, pyelonephritis. Has passed stone and urinary bladder Continue treatment for nonobstructive pyelonephritis, severe sepsis, septic shock. Continue IV antibiotics. Follow-up cultures. Status: Acute (5) Community acquired pneumonia: Negative urine bacterial antigens. A component of aspiration pneumonia, aspiration pneumonitis at this time unable to obtain sputum cultures. Continue cefepime, aztreonam. MRSA nares negative Status: Acute (6) Vomiting: Without recurrence. Possibly related to urolithiasis, pyelonephritis, sepsis Famotidine added as above. Negative rapid Covid. Status: Acute (7) Acute respiratory failure with hypoxia: Status: Acute (8) Dehydration: Resolved. Status: Acute (9) Troponin level elevated: History of hemorrhagic CVA. Unknown history of cardiovascular disease otherwise. Troponin not rising to a peak. Suspect this is demand ischemia secondary to septic shock, general medical condition, in the setting of PHIL. Noted decrease in EF, but currently warm, extremities perfused. No sign of cardiogenic shock. Repeat limited study once hypotension resolves. Would benefit from additional risk stratification once condition stabilizes. 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
--- NOTE | 2020-07-15 15:52 | PC.NURSE ---
Dr. Carmichael at bedside to speak with patient's family at this time.
--- NOTE | 2020-07-15 19:32 | PC.NURSE ---
Report to Haily WALKER at this time.
[2020-07-16] VITALS (8 sets, daily range): BP systolic 150–167; BP diastolic 62–83; PULSE 63–80; RESP 16–18; TEMP 36.6–37; O2SAT 94–97
--- NOTE | 2020-07-16 11:52 | P.PN_ITS ---
Subjective Subjective: Interval history: Patient was examined this morning, he does awaken, to his name, he looks at me, does not follow any commands Vitals/I&O/Wt Last Vital Signs Temp 98.2 F 07/16/20 07:19 Pulse 63 07/16/20 07:19 Resp 17 07/16/20 07:19 BP 167/66 07/16/20 07:19 Pulse Ox 94 07/16/20 07:19 07/15/20 07/16/20 07/16/20 22:59 06:59 14:59 Intake Total 0 / 0 120 / 120 Output Total 2099 / 2099 1000 / 3100 Balance -2100 / -2100 -1000 / -3100 120 / 120 Physical Exam Const: COMMON NORMALS: no acute distress Resp: COMMON NORMALS: normal respiratory effort AUSCULTATION: crackles Cardio: COMMON NORMALS: regular rate, regular rhythm, S1 normal heart sound present and S2 normal heart sound present RATE: regular rate RHYTHM: regular rhythm HEART SOUNDS: S1 normal heart sound present and S2 normal heart sound present GI: COMMON NORMALS: Normal to inspection, nondistended, normoactive bowel sounds present Urinary Catheter Management^: Landon: Cath Placed During This Visit: yes Reason for Continuing Indwelling Catheter: Hospice/Comfort/Palliative Care Urinary Catheter Date of Insertion: 07/10/20 Urinary Catheter Time of Insertion: 00:20 Data : 07/14/20 03:40 07/14/20 03:40 A&P Assessment and plan (1) Septic shock: -Start comfort care -Morphine, Ativan, sublingual atropine, oxygen for comfort, Landon catheter for comfort, patient in a private room -Patient might require comfort care at a snf versus at home -Secondary to pneumonia, aspiration pneumonitis, obstructive pyelonephritis -With multiorgan failure -Acute renal failure -Acute liver failure -Cardiomyopathy, EF 25 to 30%, with multiple wall motion abnormalities -Acute hypoxic respiratory failure -Acute encephalopathy -Evidence of DIC -Has had episodes of nonsustained V. tach -Repeat CT scan of the abdomen pelvis shows improved left hydronephrosis, migrated 4 mm left renal calculi in the left renal pelvis, left ureter decompressed -He is a groundglass infiltrates in the left greater than right upper lobes -WBC 11.0, platelet count 53, afebrile overnight, off pressors Plan: -Continue ICU monitoring -I did discuss obstructive component with Dr. Bird, it seems as if initially patient had obstructive pyelonephritis, however the stone has clearly moved into the bladder, and hydronephrosis has resolved, clinically he is out of the septic shock, however continues to have acute renal failure. Certainly Dr. Bird says that he could entertain the idea of placing a stent, however it would likely not provide any benefit at this point. I also discussed this with patient's , and as per his health care directives, he would not want to have surgery if the likelihood of him having a meaningful recovery is fairly unlikely , declined for now -Blood cultures, urine cultures positive for E. coli, repeat blood cultures tomorrow morning currently on aztreonam, cefepime -Creatinine 3.5, BUN 91, improving urine output with Lasix, approximately 1300 cc, will give another 40 mg Lasix as BNP is elevated and evidence of pulmonary edema -Currently off dobutamine, maintain MAP greater than 75 -Currently off amiodarone, normal sinus rhythm continue Cardizem 30 every 6 hours -Currently nasogastric tube in place, according to patient's healthcare directive he does not want to have a NG tube placed for life-sustaining measures such as feedings or water, however we are giving medications to this as patient's unable to swallow at this point, I discussed this with patient's she agrees that we can keep it in place as long as that we do not feed patient through it, and I also feel that this is in line with his health care directives, but will work diligently to remove as soon as possible -Continue hydrocortisone stress dose -Continue famotidine -Heparin for DVT prophylaxis -Poor functional status -Status is stable, prognosis is poor - updated, at bedside -Patient is DNR/DNI, family and patient would like to avoid aggressive interventions if the likelihood of meaningful recovery is very unlikely Status: Acute (2) Acute encephalopathy: Continue treatment of underlying conditions with complicated UTI, sepsis, septic shock acute respiratory failure, pneumonia. History of hemorrhagic CVA. Had some twitching, will hold off on Keppra CT head without acute pathology. Repeat CT of the head did not show no new bleed Status: Acute (3) PHIL (acute kidney injury): Creatinine with minute improvement down to 2.5. Monitor urine output. Maintain blood pressures. Status: Acute (4) UTI (urinary tract infection): Appears to have transient obstructive uropathy, pyelonephritis. Has passed stone and urinary bladder Continue treatment for nonobstructive pyelonephritis, severe sepsis, septic shock. Continue IV antibiotics. Follow-up cultures. Status: Acute (5) Community acquired pneumonia: Negative urine bacterial antigens. A component of aspiration pneumonia, aspiration pneumonitis at this time unable to obtain sputum cultures. Continue cefepime, aztreonam. MRSA nares negative Status: Acute (6) Vomiting: Without recurrence. Possibly related to urolithiasis, pyelonephritis, s epsis Famotidine added as above. Negative rapid Covid. Status: Acute (7) Acute respiratory failure with hypoxia: Status: Acute (8) Dehydration: Resolved. Status: Acute (9) Troponin level elevated: History of hemorrhagic CVA. Unknown history of cardiovascular disease otherwise. Troponin not rising to a peak. Suspect this is demand ischemia secondary to septic shock, general medical condition, in the setting of PHIL. Noted decrease in EF, but currently warm, extremities perfused. No sign of cardiogenic shock. Repeat limited study once hypotension resolves. Would benefit from additional risk stratification once condition stabilizes. Status: Acute (10) Shock liver: Status: Acute (11) Thrombocytopenia: Secondary to sepsis Status: Acute Attestations Medical Necessity Statement*: Patient requires hospitalization for comfort care Coding Level of Care Code Acute Activities Attendant for [facility] Diagnoses Septic shock A41.9; R65.21 Acute encephalopathy G93.40 PHIL (acute kidney injury) N17.9 UTI (urinary tract infection) N39.0 Community acquired pneumonia J18.9 Vomiting R11.10 Acute respiratory failure with hypoxia J96.01 Dehydration E86.0 Troponin level elevated R77.8 Shock liver K72.00 Thrombocytopenia D69.6
[2020-07-16] MEDS: morphine 4 mg/mL SDV 1 mL IVP (16:01)
--- NOTE | 2020-07-16 17:15 | PC.SOCIAL ---
IMM Update IMM update given to who was at bedside. Verbalized an understanding. Copy of Pg. 2 provided.
[2020-07-17 07:47] VITALS: BP 161/84; PULSE 77; RESP 18; TEMP 36.6; O2SAT 95
[2020-07-17 09:20] VITALS: PULSE 78; RESP 17; O2SAT 96
--- NOTE | 2020-07-17 14:50 | PM.PN ---
Subjective Subjective: Interval history: Patient was seen this morning, he is barely arousable, does not follow commands Vitals/I&O/Wt Last Vital Signs Temp 97.9 F 07/17/20 07:47 Pulse 78 07/17/20 09:20 Resp 17 07/17/20 09:20 BP 161/84 07/17/20 07:47 Pulse Ox 96 07/17/20 09:20 07/16/20 07/17/20 07/17/20 22:59 06:59 14:59 Intake Total 0 / 120 Output Total 1779 / 1779 Balance 0 / 120 -1780 / -1660 Physical Exam Const: GENERAL APPEARANCE: ill appearing ORIENTATION/CONSCIOUSNESS: Yes awake and Yes confused; not oriented to person, not oriented to place and not oriented to time Resp: COMMON NORMALS: No retractions EFFORT & INSPECTION: Yes tachypneic AUSCULTATION: crackles Cardio: COMMON NORMALS: regular rate, S1 normal heart sound present and S2 normal heart sound present RATE: regular rate HEART SOUNDS: S1 normal heart sound present and S2 normal heart sound present GI: COMMON NORMALS: Normal to inspection, nondistended, normoactive bowel sounds present and Soft to palpation INSPECTION: Yes normal to inspection PALPATION: Yes Soft to palpation PERCUSSION: normal to percussion Neuro: SENSORIUM/ORIENTATION: No oriented to person, No oriented to place and No oriented to time Urinary Catheter Management^: Landon: Cath Placed During This Visit: yes Reason for Continuing Indwelling Catheter: Other Urinary Catheter Date of Insertion: 07/10/20 Urinary Catheter Time of Insertion: 00:20 Data : 07/14/20 03:40 07/14/20 03:40 A&P Assessment and plan (1) Septic shock: -Start comfort care -Morphine, Ativan, sublingual atropine, oxygen for comfort, Landon catheter for comfort, patient in a private room -Patient might require comfort care at a [place] health care facility versus at home -Secondary to pneumonia, aspiration pneumonitis, obstructive pyelonephritis -E. coli bacteremia, E. coli UTI -With multiorgan failure -Acute renal failure -Acute liver failure -Cardiomyopathy, EF 25 to 30%, with multiple wall motion abnormalities -Acute hypoxic respiratory failure -Acute encephalopathy -Evidence of DIC -Has had episodes of nonsustained V. tach -Repeat CT scan of the abdomen pelvis shows improved left hydronephrosis, migrated 4 mm left renal calculi in the left renal pelvis, left ureter decompressed -He is a groundglass infiltrates in the left greater than right upper lobes -WBC 11.0, platelet count 53, afebrile overnight, off pressors Plan: -Continue ICU monitoring -I did discuss obstructive component with Dr. Bird, it seems as if initially patient had obstructive pyelonephritis, however the stone has clearly moved into the bladder, and hydronephrosis has resolved, clinically he is out of the septic shock, however continues to have acute renal failure. Certainly Dr. Bird says that he could entertain the idea of placing a stent, however it would likely not provide any benefit at this point. I also discussed this with patient's , and as per his health care directives, he would not want to have surgery if the likelihood of him having a meaningful recovery is fairly unlikely, declined for now -Blood cultures, urine cultures positive for E. coli, repeat blood cultures tomorrow morning currently on aztreonam, cefepime -Creatinine 3.5, BUN 91, improving urine output with Lasix, approximately 1300 cc, will give another 40 mg Lasix as BNP is elevated and evidence of pulmonary edema -Currently off dobutamine, maintain MAP greater than 75 -Currently off amiodarone, normal sinus rhythm continue Cardizem 30 every 6 hours -Currently nasogastric tube in place, according to patient's healthcare directive he does not want to have a NG tube placed for life-sustaining measures such as feedings or water, however we are giving medications to this as patient's unable to swallow at this point, I discussed this with patient's she agrees that we can keep it in place as long as that we do not feed patient through it, and I also feel that this is in line with his health care directives, but will work diligently to remove as soon as possible -Continue hydrocortisone stress dose -Continue famotidine -Heparin for DVT prophylaxis -Poor functional status -Status is stable, prognosis is poor - updated, at bedside -Patient is DNR/DNI, family and patient would like to avoid aggressive interventions if the likelihood of meaningful recovery is very unlikely Status: Acute (2) Acute encephalopathy: Continue treatment of underlying conditions with complicated UTI, sepsis, septic shock acute respiratory failure, pneumonia. History of hemorrhagic CVA. Had some twitching, will hold off on Keppra CT head without acute pathology. Repeat CT of the head did not show no new bleed Status: Acute (3) PHIL (acute kidney injury): Creatinine with minute improvement down to 2.5. Monitor urine output. Maintain blood pressures. Status: Acute (4) UTI (urinary tract infection): Appears to have transient obstructive uropathy, pyelonephritis. Has passed stone and urinary bladder Continue treatment for nonobstructive pyelonephritis, severe sepsis, septic shock. Continue IV antibiotics. Follow-up cultures. Status: Acute (5) Community acquired pneumonia: Negative urine bacterial antigens. A component of aspiration pneumonia, aspiration pneumonitis at this time unable to obtain sputum cultures. Continue cefepime, aztreonam. MRSA nares negative Status: Acute (6) Vomiting: Without recurrence. Possibly related to urolithiasis, pyelonephritis, sepsis Famotidine added as above. Negative rapid Covid. Status: Acute (7) Acute respiratory failure with hypoxia: Status: Acute (8) Dehydration: Resolved. Status: Acute (9) Troponin level elevated: History of hemorrhagic CVA. Unknown history of cardiovascular disease otherwise. Troponin not rising to a peak. Suspect this is demand ischemia secondary to septic shock, general medical condition, in the setting of PHIL. Noted decrease in EF, but currently warm, extremities perfused. No sign of cardiogenic shock. Repeat limited study once hypotension resolves. Would benefit from additional risk stratification once condition stabilizes. Status: Acute (10) Shock liver: Status: Acute (11) Thrombocytopenia: Secondary to sepsis Status: Acute Additional A&P Information DM2: SSI, levemir [id number] Sinus tachycardia DVT prophylaxis Heparin Landon catheter placement,: 07/10/2020 Central line placement: 07/09/2020 Plan for today start comfort care Attestations Medical Necessity Statement*: Patient requires hospitalization for comfort care Coding Level of Care Code Acute Superintendent System Operation for [facility] Diagnoses Septic shock A41.9; R65.21 Acute encephalopathy G93.40 PHIL (acute kidney injury) N17.9 UTI (urinary tract infection) N39.0 Community acquired pneumonia J18.9 Vomiting R11.10 Acute respiratory failure with hypoxia J96.01 Dehydration E86.0 Troponin level elevated R77.8 Shock liver K72.00 Thrombocytopenia D69.6
[2020-07-17 20:00] VITALS: BP 167/87; PULSE 79; RESP 20; TEMP 37.1; O2SAT 98
[2020-07-17 20:28] VITALS: PULSE 77; RESP 18; O2SAT 95
[2020-07-18 07:41] VITALS: BP 151/90; PULSE 86; RESP 17; TEMP 36.7; O2SAT 98
[2020-07-18 08:25] VITALS: PULSE 76; RESP 17; O2SAT 96
--- NOTE | 2020-07-18 10:06 | PC.CHAP ---
Pastoral Care Encounter/Spiritual Assessment Type of Contact [] Declined hand cloth cutter visit [] Patient/Family/Request visit [] Outpatient visit [] Follow-up visit [] Physician referral [] Code/Alert [x] Routine visit [] Staff referral [] Actively dying [] Patient sleeping [] Family support [] [] Out of room [] Palliative care [] [] Receiving care in room [] Pre-surgical visit [] Trauma [] Long length of stay [] ICU visit [] Other: Relational/Emotional Strength [] Patient feels connected with others/family/visitors/staff [] Distress [] Loneliness/isolation [] Abandonment Spirituality of Patient [] Person of Emma [] Attends Anabaptism of their Emma [] Believes in Prayer [] Reads Bible or Hoahaoism materials [x] There are Spiritual issues to be addressed General Manager Farm Interventions [] Prayer [] Active listening [x] Non-anxious presence [] Spiritual/emotional support [] Crisis/trauma care [] Spiritual counseling [] Bereavement support [] Provided bereavement packet [] Provided Bible/devotional materials [] Provided toy/stuffed animal, coloring book to patient or family member [] Provided Communion [] Anointing/[place] [] Salvation [] Completed spiritual assessment [] Other: Impact on Illness or Injury [] Angry [] Fearful [] Anxious [] Often cries [] Exhaustion [] Unable to work [] Unable to attend rastafari [] Unable to walk/stand [] Unable to read [] Unable to drive [] Unable to eat/drink [] Unable to sleep [] Unable to be with family [] Patient intubated [] Other: Summary Pt. was awake but unresponsive to hand cloth cutter. Time spent with patient 1m
--- NOTE | 2020-07-18 12:04 | PM.PN ---
Subjective Subjective: Interval history: Patient was examined this morning, he is barely arousable, breathing is labored Vitals/I&O/Wt Last Vital Signs Temp 98.0 F 07/18/20 07:41 Pulse 76 07/18/20 08:25 Resp 17 07/18/20 08:25 BP 151/90 07/18/20 07:41 Pulse Ox 96 07/18/20 08:25 07/17/20 07/18/20 07/18/20 22:59 06:59 14:59 Output Total 825 / 825 500 / 1325 Balance -825 / -825 -500 / -1325 Physical Exam Const: EXAM LIMITATIONS: altered mental status GENERAL APPEARANCE: ill appearing ORIENTATION/CONSCIOUSNESS: not awake, not oriented to person, not oriented to place and not oriented to time Resp: EFFORT & INSPECTION: Yes tachypneic and Yes labored AUSCULTATION: crackles Cardio: COMMON NORMALS: regular rate, regular rhythm and S2 normal heart sound present RATE: regular rate RHYTHM: regular rhythm HEART SOUNDS: S1 normal heart sound present and S2 normal heart sound present GI: COMMON NORMALS: Normal to inspection, nondistended, normoactive bowel sounds present and Soft to palpation PALPATION: Yes Soft to palpation Neuro: SENSORIUM/ORIENTATION: No oriented to person, No oriented to place and No oriented to time Urinary Catheter Management^: Landon: Cath Placed During This Visit: yes Reason for Continuing Indwelling Catheter: Other Urinary Catheter Date of Insertion: 07/10/20 Urinary Catheter Time of Insertion: 00:20 Data : 07/14/20 03:40 07/14/20 03:40 Micro: Microbiology 07/13/20 02:00 Blood Culture - Final Blood NO GROWTH AFTER 5 DAYS 07/13/20 02:00 Blood Culture - Final Blood NO GROWTH AFTER 5 DAYS A&P Assessment and plan (1) Septic shock: -Start comfort care -Morphine, Ativan, sublingual atropine, oxygen for comfort, Landon catheter for comfort, patient in a private room -Patient might require comfort care at a detention versus at home -Secondary to pneumonia, aspiration pneumonitis, obstructive pyelonephritis -E. coli bacteremia, E. coli UTI -With multiorgan failure -Acute renal failure -Acute liver failure -Cardiomyopathy, EF 25 to 30%, with multiple wall motion abnormalities -Acute hypoxic respiratory failure -Acute encephalopathy -Evidence of DIC -Has had episodes of nonsustained V. tach -Repeat CT scan of the abdomen pelvis shows improved left hydronephrosis, migrated 4 mm left renal calculi in the left renal pelvis, left ureter decompressed -He is a groundglass infiltrates in the left greater than right upper lobes -WBC 11.0, platelet count 53, afebrile overnight, off pressors Plan: -Continue ICU monitoring -I did discuss obstructive component with Dr. Bird, it seems as if initially patient had obstructive pyelonephritis, however the stone has clearly moved into the bladder, and hydronephrosis has resolved, clinically he is out of the septic shock, however continues to have acute renal failure. Certainly Dr. Bird says that he could entertain the idea of placing a stent, however it would likely not provide any benefit at this point. I also discussed this with patient's , and as per his health care directives, he would not want to have surgery if the likelihood of him having a meaningful recovery is fairly unlikely, declined for now -Blood cultures, urine cultures positive for E. coli, repeat blood cultures tomorrow morning currently on aztreonam, cefepime -Creatinine 3.5, BUN 91, improving urine output with Lasix, approximately 1300 cc, will give another 40 mg Lasix as BNP is elevated and evidence of pulmonary edema -Currently off dobutamine, maintain MAP greater than 75 -Currently off amiodarone, normal sinus rhythm continue Cardizem 30 every 6 hours -Currently nasogastric tube in place, according to patient's healthcare directive he does not want to have a NG tube placed for life-sustaining measures such as feedings or water, however we are giving medications to this as patient's unable to swallow at this point, I discussed this with patient's she agrees that we can keep it in place as long as that we do not feed patient through it, and I also feel that this is in line with his health care directives, but will work diligently to remove as soon as possible -Continue hydrocortisone stress dose -Continue famotidine -Heparin for DVT prophylaxis -Poor functional status -Status is stable, prognosis is poor - updated, at bedside -Patient is DNR/DNI, family and patient would like to avoid aggressive interventions if the likelihood of meaningful recovery is very unlikely Status: Acute (2) Acute encephalopathy: Continue treatment of underlying conditions with complicated UTI, sepsis, septic shock acute respiratory failure, pneumonia. History of hemorrhagic CVA. Had some twitching, will hold off on Keppra CT head without acute pathology. Repeat CT of the head did not show no new bleed Status: Acute (3) PHIL (acute kidney injury): Creatinine with minute improvement down to 2.5. Monitor urine output. Maintain blood pressures. Status: Acute (4) UTI (urinary tract infection): Appears to have transient obstructive uropathy, pyelonephritis. Has passed stone and urinary bladder Continue treatment for nonobstructive pyelonephritis, severe sepsis, septic shock. Continue IV antibiotics. Follow-up cultures. Status: Acute (5) Community acquired pneumonia: Negative urine bacterial antigens. A component of aspiration pneumonia, aspiration pneumonitis at this time unable to obtain sputum cultures. Continue cefepime, aztreonam. MRSA nares negative Status: Acute (6) Vomiting: Without recurrence. Possibly related to urolithiasis, pyelonephritis, sepsis Famotidine added as above. Negative rapid Covid. Status: Acute (7) Acute respiratory failure with hypoxia: Status: Acute (8) Dehydration: Resolved. Status: Acute (9) Troponin level elevated: History of hemorrhagic CVA. Unknown history of cardiovascular disease otherwise. Troponin not rising to a peak. Suspect this is demand ischemia secondary to septic shock, general medical condition, in the setting of PHIL. Noted decrease in EF, but currently warm, extremities perfused. No sign of cardiogenic shock. Repeat limited study once hypotension resolves. Would benefit from additional risk stratification once condition stabilizes. 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
--- NOTE | 2020-07-18 13:02 | PC.SOCIAL ---
IMM Update Pg.2 of IMM updated and reviewed with patient's family who verbalized understanding. Copy provided.
[2020-07-18 19:42] VITALS: BP 138/79; PULSE 86; RESP 17; TEMP 36.9; O2SAT 98
[2020-07-19] VITALS: BP 132/83; PULSE 86; RESP 16; TEMP 36.8; O2SAT 97
[2020-07-19 04:00] VITALS: BP 121/74; PULSE 86; RESP 16; TEMP 36.6; O2SAT 99
[2020-07-19 07:23] VITALS: BP 127/84; PULSE 89; RESP 17; TEMP 36.6; O2SAT 98
[2020-07-19 11:16] VITALS: BP 130/82; PULSE 83; RESP 17; TEMP 36.7; O2SAT 97
--- NOTE | 2020-07-19 13:46 | P.PN_ITS ---
Subjective Subjective: Interval history: Patient unresponsive, chart reviewed. Currently on comfort care. Vitals/I&O/Wt Last Vital Signs Temp 98.0 F 07/19/20 11:16 Pulse 83 07/19/20 11:16 Resp 17 07/19/20 11:16 BP 130/82 07/19/20 11:16 Pulse Ox 97 07/19/20 11:16 07/18/20 07/19/20 07/19/20 22:59 06:59 14:59 Intake Total 60 / 60 0 / 0 Output Total 500 / 500 300 / 800 Balance -440 / -440 -300 / -740 0 / 0 Physical Exam Narrative: EXAM NARRATIVE: Unresponsive, eyes are open, tachypneic but no accessory muscle use, shallow respirations, oropharynx is dry, no abnormal movements. Catheter remains in place for comfort. Urinary Catheter Management^: Landon: Cath Placed During This Visit: yes Reason for Continuing Indwelling Catheter: Other Urinary Catheter Date of Insertion: 07/10/20 Urinary Catheter Time of Insertion: 00:20 Data : 07/14/20 03:40 07/14/20 03:40 A&P Assessment and plan (1) Need for comfort care: Status: Acute (2) Septic shock: Urinary source of infection with associated bacteremia Status: Acute (3) Multiorgan failure: Including acute kidney injury, shock liver, coagulopathy, encephalopathy, respiratory failure, lactic acidosis Status: Acute (4) E. coli bacteremia: Status: Acute (5) UTI (urinary tract infection): Status: Acute Qualifiers: Urinary tract infection type: acute cystitis Hematuria presence: without hematuria Qualified Code(s): N30.00 - Acute cystitis without hematuria (6) Aspiration pneumonia: Status: Acute Qualifiers: Aspiration pneumonia type: due to vomit Laterality: bilateral Lung location: lower lobe of lung Qualified Code(s): J69.0 - Pneumonitis due to inhalation of food and vomit (7) CVA (cerebrovascular accident due to intracerebral hemorrhage): Status: Chronic Qualifiers: Intracerebral hemorrhage etiology: nontraumatic Cerebral hemorrhage location: cerebral hemisphere, unspecified portion Laterality: right Qualified Code(s): I61.2 - Nontraumatic intracerebral hemorrhage in hemisphere, unspecified (8) Type 2 diabetes mellitus: Status: Chronic Qualifiers: Diabetes mellitus [facility] insulin use: with intermediate designer use Diabetes mellitus complication status: without complication Qualified Code(s): E11.9 - Type 2 diabetes mellitus without complications; Z79.4 - residential (current) use of insulin Additional A&P Information Continue current management Discussed with case management and working on hospice care at home versus end-of-life care in a facility. Sounds like we are leaning towards hospice care but probably in a facility. Once arrangements are made can discharge Attestations Medical Necessity Statement*: Disposition in progress with plan for hospice care at local skilled facility. 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 coli bacteremia R78.81; B96.20 UTI (urinary tract infection) N30.00 Urinary tract infection type: acute cystitis Hematuria presence: without hematuria Aspiration pneumonia J69.0 Aspiration pneumonia type: due to vomit Laterality: bilateral Lung location: lower lobe of lung CVA (cerebrovascular accident due to intracerebral hemorrhage) I61.2 Intracerebral hemorrhage etiology: nontraumatic Cerebral hemorrhage location: cerebral hemisphere, unspecified portion Laterality: right Type 2 diabetes mellitus E11.9; Z79.4 Diabetes mellitus [facility] insulin use: with intermediate designer use Diabetes mellitus complication status: without complication
[2020-07-19 15:53] VITALS: BP 128/76; PULSE 86; RESP 17; TEMP 36.8; O2SAT 99
[2020-07-19 19:43] VITALS: BP 120/82; PULSE 102; RESP 17; TEMP 38.2; O2SAT 94
[2020-07-20] VITALS: BP 102/70; PULSE 98; RESP 18; TEMP 37.7; O2SAT 96
[2020-07-20] MEDS: acetaminophen 650 mg Supp PR (00:06)
[2020-07-20 04:00] VITALS: BP 88/59; PULSE 90; RESP 18; TEMP 38.1; O2SAT 96
[2020-07-20 04:39] VITALS: RESP 24
[2020-07-20 06:36] VITALS: TEMP 37.6
[2020-07-20 07:54] VITALS: BP 59/46; PULSE 86; RESP 21; TEMP 37.6; O2SAT 94
[2020-07-20 10:56] VITALS: PULSE 82; RESP 21; TEMP 37.4; O2SAT 93
--- NOTE | 2020-07-20 11:53 | PC.SOCIAL ---
IMM Updated Updated pt's on Pg 2 IMM. No questions voiced. Provided a copy. Signed, dated, & timed copy in chart.
--- NOTE | 2020-07-20 12:27 | P.DS_ITS ---
Discharge Providers Date of Admission: 07/09/20 22:24 Date of Discharge: July 20, 2020 Attending Provider at Admission: Joshua Villafana MD Attending Provider at Discharge: Padmini Hauser MD Primary Care Provider: Oscar Farah DO Diagnoses at Discharge Discharge Diagnosis (1) Need for comfort care: Status: Acute (2) Septic shock: Status: Acute (3) Multiorgan failure: Status: Acute (4) E. coli bacteremia: Status: Acute (5) UTI (urinary tract infection): Status: Acute Qualifiers: Urinary tract infection type: acute cystitis Hematuria presence: without hematuria Qualified Code(s): N30.00 - Acute cystitis without hematuria (6) Aspiration pneumonia: Status: Acute Qualifiers: Aspiration pneumonia type: due to vomit Laterality: bilateral Lung location: lower lobe of lung Qualified Code(s): J69.0 - Pneumonitis due to inhalation of food and vomit (7) CVA (cerebrovascular accident due to intracerebral hemorrhage): Status: Chronic Qualifiers: Intracerebral hemorrhage etiology: nontraumatic Cerebral hemorrhage location: cerebral hemisphere, unspecified portion Laterality: right Qualified Code(s): I61.2 - Nontraumatic intracerebral hemorrhage in hemisphere, unspecified (8) Type 2 diabetes mellitus: Status: Chronic Qualifiers: Diabetes mellitus local intermodal truck 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 insulin use: with intermediate use Diabetes mellitus complication status: without complication Qualified Code(s): E11.9 - Type 2 diabetes mellitus without complications; Z79.4 - exterminator (current) use of insulin Reason for Visit Reason for Visit: weakness Physical Exam Urinary Catheter Management^: Landon: Cath Placed During This Visit: yes Reason for Continuing Indwelling Catheter: Hospice/Comfort/Palliative Care Urinary Catheter Date of Insertion: 07/10/20 Urinary Catheter Time of Insertion: 00:20 Discharge Data Data Completed and Pending: Completed Studies During Hospitalization Category Date Time Status CT abdomen pelvis wo con 14051 Urge nt Cat Scan 07/10/20 01:[address] chest abd pel wo con Routine Cat Scan 07/12/20 08:[address] head wo con* 7 0450 Routine Cat Scan 07/12/20 08:[address] head wo con* 7 0450 Urgent Cat Scan 07/09/20 19:59 Completed XR chest 1V keith ble 05808 Routine Exams 07/09/20 23:31 Completed XR chest 1V keith ble [id number] Routine Exams 07/11/20 04:55 Completed XR chest 1V keith ble [id number] Routine Exams 07/11/20 14:43 Completed XR chest 1V keith ble 12006 Routine Exams 07/13/20 07:00 Completed XR chest 1V keith ble [id number] Routine Exams 07/14/20 07:00 Completed XR chest 1V keith ble [id number] Stat Exams 07/09/20 19:48 Completed CV echo complete* 13584 Routine Ultrasound 07/10/20 08:03 Completed Laboratory Last Values WBC 10.0 10^3/uL (4.0 -10.0) 07/14/20 03:40 Corrected WBC Cancelled 07/09/20 20:16 RBC 3.48 10^6/uL (4.1 -5.3) L 07/14/20 03:40 Hgb 10.5 g/dL (11.7-1 6.6) L 07/14/20 03:40 Hct 30.3 % (42.0-52.0 ) L 07/14/20 03:40 MCV 87.1 fL (80-94) 07/14/20 03:40 MCH 30.2 pg (28.0-34. 0) 07/14/20 03:40 MCHC 34.7 g/dL (30.0-3 6.0) 07/14/20 03:40 RDW 13.8 % (12.1-15.1 ) 07/14/20 03:40 Plt Count 59 10^3/cmm (130- 400) L 07/14/20 03:40 MPV 12.1 fL (7.4-10.4 ) H 07/14/20 03:40 Gran % Cancelled 07/09/20 20:16 Neut % (Auto) 81.8 % 07/14/20 03:40 Lymph % (Auto) 4.1 % 07/14/20 03:40 Walker % (Auto) 8.7 % 07/14/20 03:40 Eos % (Auto) 0.0 % 07/14/20 03:40 Baso % (Auto) 0.8 % 07/14/20 03:40 Neut # (Auto) 8.15 10^3/uL (1.8 -7.7) H 07/14/20 03:40 Lymph # (Auto) 0.4 10^3/uL (0.8- 4.8) L 07/14/20 03:40 Walker # (Auto) 0.9 10^3/uL (0.2- 0.9) 07/14/20 03:40 Eos # (Auto) 0.0 10^3/uL (0.0- 0.8) 07/14/20 03:40 Baso # (Auto) 0.1 10^3/uL (0.0- 0.1) 07/14/20 03:40 Absolute Gran (aut o) Cancelled 07/09/20 20:16 Nucleated RBC % (a uto) 0.4 % 07/14/20 03:40 Total Counted 100 (0-100) 07/13/20 02:00 Atypical Lymphs % 0.0 % (0-5) 07/13/20 02:00 Absolute Neutrophi ls 9.7 10^3/cmm (1.4 -6.5) H 07/13/20 02:00 Segmented Neutroph ils 73 % 07/13/20 02:00 Abs Segm Neuts (Ma n) 8.0 10/cmm (1.6-7 .1) H 07/13/20 02:00 Band Neutrophils 15.0 % 07/13/20 02:00 Abs Band Neuts (Ma n) 1.7 10^3/cmm (0.0 -1.2) H 07/13/20 02:00 Absolute Lymphocyt es 1.0 10^3/cmm (1.2 -3.4) L 07/13/20 02:00 Lymphocytes (Manua l) 9 % 07/13/20 02:00 Monocytes (Manual) 3.0 % 07/13/20 02:00 Absolute Monocytes 0.3 10^3/cmm (0.1 -0.6) 07/13/20 02:00 Eosinophils (Manua l) 0 % 07/13/20 02:00 Absolute Eosinophi ls 0.0 10^3/cmm (0.0 -0.7) 07/13/20 02:00 Basophils (Manual) 0.0 % 07/13/20 02:00 Absolute Basophils 0.0 10^3/cmm (0.0 -0.2) 07/13/20 02:00 Metamyelocytes 0.0 % 07/13/20 02:00 Nucleated RBCs # 0.0 /100WBC 07/14/20 03:40 Toxic Granulation 2+ H 07/09/20 21:21 Toxic Vacuolation 2+ H 07/09/20 21:21 Dohle Bodies 1+ H 07/09/20 21:21 Platelet Estimate Decreased (Stephanie l) 07/13/20 02:00 Giant Platelets 1+ H 07/13/20 02:00 PT 17.10 SECONDS (12 .1-14.9) H 07/14/20 03:40 INR 1.35 (0.8-1.2) H 07/14/20 03:40 APTT 30.2 SECONDS (23. 9-36.7) 07/14/20 03:40 Fibrinogen 378 mg/dL (174-49 8) 07/14/20 03:40 Fibrin Degrad Prod ucts Pos, 10-40 ug/mL (NEG) H 07/14/20 03:40 D-Dimer 6.28 ug/mIFEU (0- 0.59) H 07/14/20 03:40 Specimen Type Arterial 07/14/20 04:00 Sample Site Radial, left 07/14/20 04:00 ABG pH 7.46 (7.35-7.45) H 07/14/20 04:00 ABG pCO2 29.8 mmHg (35-45) L 07/14/20 04:00 ABG pO2 81.8 mmHg (80.0-1 00.0) 07/14/20 04:00 ABG HCO3 21.2 mmol/L (22-2 6) L 07/14/20 04:00 ABG Base Excess -1.7 mmol/L (-2.0 -2.0) 07/14/20 04:00 Joey Test Pos 07/14/20 04:00 Hematocrit 37.5 % (42-52) L 07/14/20 04:00 O2 Delivery Device Room air 07/14/20 04:00 O2 Liters/Min 3.0 % 07/12/20 12:32 FiO2 21.0 % 07/14/20 04:00 Floater Operator ID Harkr 07/14/20 04:00 Sodium 144 mmol/L (136-1 45) 07/14/20 03:40 Potassium 2.7 mmol/L (3.5-5 .1) L* 07/14/20 03:40 Chloride 108 mmol/L (98-10 7) H 07/14/20 03:40 Carbon Dioxide 22 mmol/L (22-29) 07/14/20 03:40 Anion Gap 16.7 (5-19) 07/14/20 03:40 BUN 104 mg/dL (8-23) H* 07/14/20 03:40 Creatinine 3.5 mg/dL (0.7-1. 2) H 07/14/20 03:40 GFR Calculation 17.5 mL/min (90-1 30) L 07/14/20 03:40 Glucose 198 mg/dL (65-115 ) H 07/14/20 03:40 POC Glucose 214 mg/dL (70-110 ) H 07/14/20 10:56 Calculated Osmolal ity 336 mOsm/kg (285- 295) H 07/14/20 03:40 Lactic Acid Cancelled 07/09/20 20:16 Lactic Acid (Sepsi s) 4.8 mmol/L (0.5-2 .2) H* 07/09/20 21:21 Lactate 1.3 mmol/L (0.5-2 .2) 07/14/20 03:40 Calcium 8.6 mg/dL (8.5-10 .5) 07/14/20 03:40 Phosphorus 4.0 mg/dL (2.5-4. 5) 07/14/20 03:40 Magnesium 2.0 mg/dL (1.7-2. 3) 07/14/20 03:40 Total Bilirubin 0.7 mg/dL (0.15-1 .2) 07/14/20 03:40 AST 424 U/L (0-40) H 07/14/20 03:40 ALT 2306 U/L (0-41) H 07/14/20 03:40 Alkaline Phosphata se 79 IU/L (40-130) 07/14/20 03:40 Creatine Kinase 61 U/L (39-308) 07/14/20 03:40 Troponin T Baselin e 191 ng/L (0-15) H* 07/09/20 21:21 Troponin T 120 Min phu 171.2 ng/L (0-15) H 07/09/20 23:34 Delta Troponin T -19.8 ABS# (0-10) L 07/09/20 23:34 Troponin T Hi Sens 6Hr 191.1 ng/L (0-15) H 07/10/20 01:31 Troponin T Hi Sens 6Hr Delta 0.1 ng/L (0-12) 07/10/20 01:31 C-Reactive Protein 70.8 mg/L (0.0-4. 9) H 07/14/20 03:40 NT-Pro-B Natriuret Pep 8896 pg/mL (0-125 ) H 07/14/20 03:40 Total Protein 5.2 g/dL (6.6-8.7 ) L 07/14/20 03:40 Albumin 3.0 g/dL (3.5-5.2 ) L 07/14/20 03:40 Globulin 2.2 g/dL (1.3-4.6 ) 07/14/20 03:40 Procalcitonin 20.53 ng/mL (0-0. 5) H 07/14/20 03:40 TSH 1.52 uIU/mL (0.27 -4.20) 07/09/20 21:21 Prolactin 14.20 ng/mL (4.0- 15.2) 07/09/20 00:18 Urine Color Yellow (Yellow) 07/09/20 22:07 Urine Appearance Turbid (CLEAR) 07/09/20 22:07 Urine pH 5 (5-7) 07/09/20 22:07 Ur Specific Gravit y 1.015 (1.005-1.0 30) 07/09/20 22:07 Urine Protein Neg (Negative) 07/09/20 22:07 Urine Glucose (UA) Norm (Normal) 07/09/20 22:07 Urine Ketones Negative (Negati ve) 07/09/20 22:07 Urine Blood 3+ (Negative) H 07/09/20 22:07 Urine Nitrate Negative (Negati ve) 07/09/20 22:07 Urine Bilirubin Neg (Negative) 07/09/20 22:07 Urine Urobilinogen Norm mg/dL (Negat ernst) 07/09/20 22:07 Ur Leukocyte Cassie ase 1+ (Negative) H 07/09/20 22:07 Urine RBC 0-4 /hpf (0-2) H 07/09/20 22:07 Urine WBC 55-80 /hpf (0-5) H 07/09/20 22:07 Ur Squamous Epith Cells 10-15 /hpf (0-5) H 07/09/20 22:07 Ur Renal Epithelia l Cell 5-10 /hpf 07/09/20 22:07 Amorphous Sediment Not Reportable 07/09/20 22:07 Urine Bacteria 4+ /hpf (NONE) H 07/09/20 22:07 Vancomycin Trough 14.1 ug/mL (10-15 ) 07/13/20 02:00 SARS-CoV-2 RNA (RT -PCR) Cancelled 07/10/20 11:45 SARS-CoV-2 Ag (Rap id) Negative (Negati ve) 07/10/20 11:45 Vitals: Last Vital Signs Temp 99.3 F 07/20/20 10:56 Pulse 82 07/20/20 10:56 Resp 21 H 07/20/20 10:56 BP 59/46 07/20/20 07:54 Pulse Ox 93 07/20/20 10:56 Discharge Plan Discharge Patient Disposition: Hospice - Medical Facility Condition: Serious Prescriptions: New Lorazepam Intensol 2 mg/mL concentrate 0.25 mg PO Q4H PRN (Reason: anxiety) Qty: 30 RF: 0 morphine concentrate 100 mg/5 mL (20 mg/mL) solution 5 mg PO Q3H PRN (Reason: dyspnea) Qty: 30 RF: 0 atropine [Isopto Atropine] 1 % Drops 3 drp sublingual Q4H PRN (Reason: Excessive Secretions, Rattling) Qty: 15 RF: 0 acetaminophen 650 mg Suppository 650 mg OR Q4H PRN (Reason: Temperature greater than 100.5) Qty: 12 RF: 0 Discontinued cholecalciferol (vitamin D3) 1,000 unit capsule 1,000 unit PO DAILY@0830 RF: 0 senna 8.6 mg capsule 8.6 mg PO DAILY PRN (Reason: Constipation) RF: 0 cinnamon bark 500 mg capsule 500 mg PO DAILY@0830 RF: 0 flaxseed oil 1,000 mg capsule 1,000 mg PO DAILY@0830 RF: 0 (DME) Accu-Chek Jayla Plus test strp Strip See Rx Instructions .ROUTE .MEDSUPPLY Qty: 200 RF: 3 metformin 500 mg tablet 500 mg PO BID@0830,2029 RF: 0 levothyroxine 100 mcg tablet 100 mcg PO DAILY@829 RF: 0 lisinopril 10 mg tablet 10 mg PO DAILY@829 RF: 0 Namenda 10 mg tablet 10 mg PO DAILY@829 RF: 0 insulin detemir U-100 100 unit/mL (3 mL) insulin pen 10 unit SUBCUT DAILY@829 RF: 0 Discharge Orders: Discharge Order (Routine); Ordered 07/20/20 Ordered By: Padmini Hauser Discharge Diet: Advance as tolerated Discharge Activity: Bedrest Activity Restrictions/Additional Instructions: Turn q 2hrs Comfort Care/End of life care Allow natural Discharge Attestations Time Spent in Discharge Care*: less than 30 min Specific Discharge Activities: documenting/other paperwork Coding Level of Care Code Acute g [facility] note Diagnoses Need for comfort care Septic shock A41.9; R65.21 Multiorgan failure E. coli bacteremia R78.81; B96.20 UTI (urinary tract infection) N30.00 Urinary tract infection type: acute cystitis Hematuria presence: without hematuria Aspiration pneumonia J69.0 Aspiration pneumonia type: due to vomit Laterality: bilateral Lung location: lower lobe of lung CVA (cerebrovascular accident due to intracerebral hemorrhage) I61.2 Intracerebral hemorrhage etiology: nontraumatic Cerebral hemorrhage location: cerebral hemisphere, unspecified portion Laterality: right Type 2 diabetes mellitus E11.9; Z79.4 Diabetes mellitus intermediate insulin use: with local intermodal truck driver use Diabetes mellitus complication status: without complication
--- NOTE | 2020-07-20 12:45 | P.DES_ITS ---
Discharge Providers DDS Date of Admission: 07/09/20 22:24 Date Summary Completed: 07/20/20 Attending Provider at Admission: Joshua Villafana MD Time of : 12:43 Attending Provider at Discharge: Padmini Hauser MD Pronouncing Clinician: Padmini Hauser Primary Care Provider: Oscar Farah DO DS Diagnoses Hospital Diagnoses (1) Septic shock: (2) Multiorgan failure: (3) E. coli bacteremia: (4) UTI (urinary tract infection): Qualifiers: Urinary tract infection type: acute cystitis Hematuria presence: without hematuria Qualified Code(s): N30.00 - Acute cystitis without hematuria (5) Aspiration pneumonia: Qualifiers: Aspiration pneumonia type: due to vomit Laterality: bilateral Lung location: lower lobe of lung Qualified Code(s): J69.0 - Pneumonitis due to inhalation of food and vomit (6) CVA (cerebrovascular accident due to intracerebral hemorrhage): Qualifiers: Intracerebral hemorrhage etiology: nontraumatic Cerebral hemorrhage location: cerebral hemisphere, unspecified portion Laterality: right Qualified Code(s): I61.2 - Nontraumatic intracerebral hemorrhage in hemisphere, unspecified (7) Type 2 diabetes mellitus: Qualifiers: Diabetes mellitus group home insulin use: with remote computer terminal operator use Diabetes mellitus complication status: without complication Qualified Code(s): E11.9 - Type 2 diabetes mellitus without complications; 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 Castrejon presented on July 09. He had septic shock and multiorgan failure related to E. coli bacteremia from urinary tract infection. He also had evidence clinically of aspiration pneumonia. He has a prior history of hemorrhagic stroke with decreased quality of life at home. He did not recover well from acute events and ultimately was transitioned to comfort care. Arrangements were underway for hospice care. He had been accepted to hospice and discharge paperwork completed for end-of-life care at [facility] under [address] [place] [address] hospice. Patient has had decline in blood pressures and heart rate and went into asystole. was confirmed. His family had just stepped out. They will be notified. Additional Data Confirmation of as documented by pronouncing clinician: no pulse, no respirations, no heart sounds and pupils fixed and dilated Family: not available (Family had just stepped out but will be contacted) Additional persons at bedside: nursing staff Attending/PCP notified?: I am attending Was code activated?: No Autopsy requested?: No Advance directives?: No (unknown) Hospice patient?: Yes (accepted to hospice and discharge paperwork completed) Discharge Plan Discharge Patient Disposition: Condition: DS Attestations Time Spent in /Discharge Care*: less than 30 min Quality - AMI: AMI present?: No Quality - Stroke: CVA present?: No Quality - VTE: VTE present?: No Deep Vein Thrombosis/Pulmonary Embolism Present on Admission: No Coding Level of Care Code Acute Technical Account Representative for g Fwd Diagnoses Septic shock A41.9; R65.21 Multiorgan failure E. coli bacteremia R78.81; B96.20 UTI (urinary tract infection) N30.00 Urinary tract infection type: acute cystitis Hematuria presence: without hematuria Aspiration pneumonia J69.0 Aspiration pneumonia type: due to vomit Laterality: bilateral Lung location: lower lobe of lung CVA (cerebrovascular accident due to intracerebral hemorrhage) I61.2 Intracerebral hemorrhage etiology: nontraumatic Cerebral hemorrhage location: cerebral hemisphere, unspecified portion Laterality: right Type 2 diabetes mellitus E11.9; Z79.4 Diabetes mellitus remote computer terminal operator insulin use: with remote computer terminal operator use Diabetes mellitus complication status: without complication
--- NOTE | 2020-07-20 12:56 | PC.NURSE ---
Postmortem care done
--- NOTE | 2020-07-20 13:37 | PC.NURSE ---
Time of called at 1343 by proposal manager writer and Robert WALKER. Family contacted and home selected. Family does not wish to view the body. appetizer packer Robert notified house piping inspector, MTS and home. Dr. Hauser was notified of time of . At 1346 funeral arrangement director departed with patient.
== END 2020-07-20 13:50 | disposition expired | DRG 871 ==
LOC: ER 19:40 → ICU 22:32 → MEDSURG 07-14 14:04
PROVIDERS: Family Medicine; Internal Medicine; Nurse Practitioner Family; Admitting Provider Internal Medicine; Emergency Provider Emergency Medicine; PCP Family Medicine; Visit Provider Hospitalist
DX: A41.9 Sepsis, unspecified organism (principal); R65.21 Severe sepsis with septic shock; G93.41 Metabolic encephalopathy; J69.0 Pneumonitis due to inhalation of food and vomit; J96.01 Acute respiratory failure with hypoxia; D65 Disseminated intravascular coagulation [defibrination syndrome]; K72.00 Acute and subacute hepatic failure without coma; E87.2 Acidosis; I69.151 Hemiplegia and hemiparesis following nontraumatic intracerebral hemorrhage affecting right dominant side; N17.9 Acute kidney failure, unspecified; N30.00 Acute cystitis without hematuria; N10 Acute pyelonephritis; I47.2 Ventricular tachycardia; I42.9 Cardiomyopathy, unspecified; I24.8 Other forms of acute ischemic heart disease; E83.42 Hypomagnesemia; R19.7 Diarrhea, unspecified; E03.9 Hypothyroidism, unspecified; I69.120 Aphasia following nontraumatic intracerebral hemorrhage; D69.6 Thrombocytopenia, unspecified; E11.9 Type 2 diabetes mellitus without complications; E86.0 Dehydration; R25.1 Tremor, unspecified; R25.3 Fasciculation; N20.0 Calculus of kidney; I46.9 Cardiac arrest, cause unspecified; Z51.5 Encounter for palliative care; B96.20 Unspecified Escherichia coli [E. coli] as the cause of diseases classified elsewhere; Z66 Do not resuscitate; I48.91 Unspecified atrial fibrillation
CPT/HCPCS: 36415; 36416; 36556; 36592; 36600; 51702; 70450; 71045; 71250; 74176; 80048; 80053; 80202; 80500; 81001; 82550; 82803; 82962; 83605; 83735; 83880; 84100; 84145; 84146; 84443; 84484; 85007; 85025; 85362; 85378; 85384; 85610; 85730; 86140; 86403; 87040; 87077; 87086; 87186; 87205; 87426; 87449; 87493; 87641; 93005; 93306; 94640; 94660; 96365; 96366; 96367; 96368; 96372; 96375; 99291; C1751; J0282; J0692; J1250; J1644; J1720; J1815; J1940; J1953; J2060; J2270; J2370; J2405; J2543; J3370; J3475; J3480; J3490; J7030; J7050; J7060